=== PATIENT | male | born 1945 | race Caucasian/White ===

== ENCOUNTER 2017-04-15 16:24 | Emergency (ER) | payer MEDICARE ==
[~2017-04-15] VITALS: Ht 175.3 cm; Wt 68.0 kg
[~2017-04-15 16:24] MED LIST: CHOL10005 PO; CLOB15OI16; DEX4 PO; FLU60SYR30 IM ONLY; FLUO60SO10; FOLI-68 PO; GABA-549; GARL10005 PO; GLUC-308 PO; LEVE500T73 PO; LORA-1455 PO; METH2.5T43 PO; ONDA8TAB94 PO; PANT40TA65 PO; PNEI IJ; PNEU0.5D3 IM; SULF-198 PO; TRIA15OI TP; ZINC50TA2 PO
--- NOTE | 2017-04-15 16:50 | ER Report ---
History and Physical Time Seen By MD: 16:49 Hx. of Stated Complaint: DIARRHEA FOR 2 DAYS. FINISHED CHEMO ON FRIDAY, HAS CA OF MULTIPLE SITES, BRAIN , LIVER, LUNG, LYMPH NODES (COLEMAN BARAKAT MD) HPI/ROS CHIEF COMPLAINT: diarrhea HISTORY OF PRESENT ILLNESS: This is a 71 year old male. He has had several days of diarrhea. Just finished his first 3 day course of chemotherapy recently. Chemotherapy was with carboplatin on days one through 3 on a 21 day cycle. Also on a Decadron taper and received Neulasta the day after the carboplatin. Cancer is an unknown primary with poorly differentiated metastatic disease Denies abdominal pain. No nausea. Stable appetite. No fevers, but had had chills. No chest pain. No shortness of breath. Has felt very weak. Gets dizzy when sitting or standing. Normal urination. No skin rashes. REVIEW OF SYSTEMS: As above, otherwise negative (COLEMAN BARAKAT MD) Allergies: Coded Allergies: No Known Drug Allergies (Unverified , 04/15/17) Home Meds Active Scripts Oxycodone Hcl/Acetaminophen (PERCOCET 5-325 MG TABLET) 1 Each Tablet, 1 EACH PO Q4-6H Y for PAIN, #12 Prov:DONNA PALACIOS DO 04/15/17 Diphenoxylate Hcl/Atropine (LOMOTIL TABLET) 1 Each Tablet, 1 EACH PO Q6H Y for diarrhea, #30 TAB Prov:DONNA PALACIOS DO 04/15/17 Pantoprazole Sodium (PANTOPRAZOLE SODIUM) 40 Mg Tablet.dr, 40 MG PO QDAY for 90 Days, #90 TAB.SR 1 Refill Prov:SERINA GIBSON-BC, ONC 04/09/17 Lorazepam (ATIVAN) 0.5 Mg Tablet, 0.5 MG PO Q4-6H Y for NAUSEA for 30 Days, #30 TAB 0 Refills Prov:SERINA GIBSON-BC, ONC 04/09/17 Ondansetron (ZOFRAN ODT) 8 Mg Tab.rapdis, 8 MG PO Q8H, #30 TAB 1 Refill Prov:SERINA GIBSON-BC, ONC 04/09/17 Triamcinolone Acetonide 0.5% (TRIAMCINOLONE ACETONIDE 0.5%) 15 Gm Oint...g., 60 GM TP QDAY, #60 GM 1 Refill Prov:BHARATH KENYON MD 09/15/15 Reported Medications Dexamethasone 4 Mg Tab (DEXAMETHASONE 4 MG TAB) 4 Mg Tab, 1 MG PO BID for 3 Days , TAB 03/28/17 Levetiracetam (LEVETIRACETAM) 500 Mg Tablet, 500 MG PO BID 03/28/17 Folic Acid (FOLIC ACID) 1 Mg Tablet, 1 MG PO QDAY, TAB 03/28/17 Garlic (GARLIC) 1,000 Mg Capsule, 1000 MG PO DAILY, CAPSULE 03/28/17 Clobetasol Propionate (CLOBETASOL PROPIONATE) 15 Gm Oint...g. 02/27/17 Cholecalciferol (Vitamin D3) (VITAMIN D3) 1,000 Unit Tablet, 1 TAB PO QDAY, TAB 09/15/15 Zinc Amino Acid Chelate (ZINC) 50 Mg Tablet, 1 TAB PO QDAY 09/15/15 Glucosamine/Chondro Hughes A (COSAMIN DS TABLET) 1 Each Tablet, 1 EACH PO QDAY 09/15/15 Discontinued Reported Medications Sulfamethoxazole/Trimet 800-160 Mg Tab (BACTRIM DS TABLET) 1 Each Tablet, 1 TAB PO DAILY, TAB 03/28/17 Methotrexate Sodium (METHOTREXATE) 2.5 Mg Tablet, 15 MG PO QWEEK 02/27/17 Fluocinonide (FLUOCINONIDE) 60 Ml Solution 02/27/17 Past Medical/Surgical History ONCOLOGY HISTORY The patient is a 71-year-old male who presented to the emergency department at [facility] on February 27, 2017 complaining of dizziness, nausea and vomiting. Noncontrast CT scan of the brain done at [facility] on February 27, 2017 showed no evidence of hemorrhage, mass or other acute process. He then had a limited MRI of the brain on February 27, 2017 showing 2.4 cm lesion within the left thalamus. MRI study could not be completed due to significant artifact from likely a metallic foreign body within the orbit soft tissues adjacent to the left globe. Contrast CT scan of the head was done showing 2 cm enhancing lesion of the left thalamus. The patient had PET/CT scan done in [place] on February 26, 2017 which showed widespread metastatic disease including several small pulmonary nodules in the right upper lobe, extensive hepatic metastasis, pelvic bone metastasis, and cervical and left inguinal paul metastasis. There was a mass in the right parotid gland likely metastatic intraparotid lymph node rather than a primary parotid tumor. The patient had multiple biopsies. 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 On February 12, 2017, he had a left neck mass fine needle aspiration which came back positive for poorly differentiated carcinoma. 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 Markers for the lung, breast, kidney, gynecologic tumors, bladder tumors and squamous cell carcinoma all came back negative. The patient completed radiation therapy to the brain on March 20, 2017. PAST MEDICAL HISTORY Significant for psoriasis. PAST SURGICAL HISTORY He had appendectomy. (DONNA PALACIOS DO) Reviewed Nurses Notes: Yes (COLEMAN BARAKAT MD) Hx Smoking: Yes Smoking Status: Current: Every Day Smoker, Heavy Tobacco Smoker Exposure to Second Hand Smoke?: Yes Hx Substance Use Disorder: No Hx Alcohol Use: No (COLEMAN BARAKAT MD) Constitutional Vital Sign - Last 24 Hours 04/15/17 04/15/17 04/15/17 04/15/17 16:36 17:15 17:18 17:22 Temp 98.1 Pulse 82 83 82 90 Resp 22 B/P (MAP) 149/90 121/77 (92) 125/70 (88) 139/82 (101) Pulse Ox 90 O2 Delivery Room Air 04/15/17 04/15/17 04/15/17 04/15/17 17:28 18:45 19:00 19:15 Pulse 77 77 74 B/P (MAP) 135/92 (106) Pulse Ox 94 95 95 O2 Flow Rate 2.0 04/15/17 04/15/17 04/15/17 04/15/17 19:30 19:45 19:50 20:00 Pulse 71 70 71 B/P (MAP) 124/73 (90) 136/113 (121) Pulse Ox 94 94 95 04/15/17 20:05 Pulse 79 Pulse Ox 93 (DONNA PALACIOS DO) Physical Exam General Appearance: The patient is alert. No acute distress. Eyes: Pupils are equal, round. Reactive to light. No pallor, injection or icterus. Extraocular movements are intact. ENT: Mucous membranes are moist. Normal oral mucosa. Posterior oropharynx is normal. Neck: Supple and non tender. Respiratory: Breathing easily and unlabored. Lungs show some mild rhonchi throughout. Cardiovascular: Regular rate and rhythm. No murmurs, gallops or rubs. Normal capillary refill. Trace bilateral pedal edema. Gastrointestinal: Abdomen is soft and non tender. Mildly distended. No masses or organomegaly. Hyperactive bowel sounds. Neurological: Alert and oriented x3. No focal neurologic deficits, generalized weakness. Skin: Warm and dry. Musculoskeletal: Extremities are nontender. DIFFERENTIAL DIAGNOSIS: After history and physical exam, differential diagnosis was considered for new onset diarrhea, with some dizziness. Concern for immune depression and infectious such as C. diff, or if simple gastroenteritis, or chemotherapy side effect. ([facility]) Medical Decision Making Data Points Result Diagram: 04/15/17 1648 04/15/17 1648 Laboratory Hematology Test 04/15/17 16:48 04/15/17 18:27 Red Blood Count 4.61 M/uL (4.00-5.60) Mean Corpuscular Volume 91.1 fL (80.0-96.0) Mean Corpuscular Hemoglobin 30.2 pg (26.0-33.0) Mean Corpuscular Hemoglobin Concent 33.2 g/dL (32.0-36.0) Red Cell Distribution Width 14.3 % (11.5-14.5) Mean Platelet Volume 8.3 fL (7.2-11.1) Neutrophils (%) (Auto) 95.9 % (39.4-72.5) Lymphocytes (%) (Auto) 3.1 % (17.6-49.6) Monocytes (%) (Auto) 0.7 % (4.1-12.4) Eosinophils (%) (Auto) 0.1 % (0.4-6.7) Basophils (%) (Auto) 0.2 % (0.3-1.4) Nucleated RBC Relative Count (auto) 0.0 /100WBC Neutrophils # (Auto) 25.6 K/uL (2.0-7.4) Lymphocytes # (Auto) 0.8 K/uL (1.3-3.6) Monocytes # (Auto) 0.2 K/uL (0.3-1.0) Eosinophils # (Auto) 0.0 K/uL (0.0-0.5) Basophils # (Auto) 0.1 K/uL (0.0-0.1) Nucleated RBC Absolute Count (auto) 0.00 K/uL Peripheral Blood Smear Yes Y/N Prothrombin Time 13.3 seconds (12.0-14.4) Prothromb Time International Ratio 1.01 Activated Partial Thromboplast Time 25 seconds (23-35) Sodium Level 136 mmol/L (137-145) Potassium Level 4.0 mmol/L (3.5-5.0) Chloride Level 105 mmol/L (98-107) Carbon Dioxide Level 22 mmol/L (22-30) Blood Urea Nitrogen 33 mg/dl (9-21) Creatinine 0.80 mg/dl (0.66-1.25) Glomerular Filtration Rate Calc > 60.0 Random Glucose 105 mg/dl (75-110) Calcium Level 8.8 mg/dl (8.4-10.2) Total Bilirubin 0.4 mg/dl (0.2-1.3) Aspartate Amino Transf (AST/SGOT) 32 U/L (0-35) Alanine Aminotransferase (ALT/SGPT) 47 U/L (0-56) Alkaline Phosphatase 169 U/L (0-126) C-Reactive Protein 0.9 mg/dl (<1.0) Total Protein 5.7 gm/dl (6.3-8.2) Albumin 3.2 g/dl (3.5-5.0) Amylase Level 117 U/L (0-110) Lipase 124 U/L (23-300) Urine Color Yellow Urine Clarity Clear Urine pH 5.0 pH (4.8-9.5) Urine Specific [place] 1.017 Urine Protein 30 mg/dL (NEGATIVE) Urine Glucose (UA) Negative mg/dL (NEGATIVE) Urine Ketones Negative mg/dL (NEGATIVE) Urine Blood Moderate (NEGATIVE) Urine Nitrite Negative (NEGATIVE) Urine Bilirubin Negative (NEGATIVE) Urine Urobilinogen Negative mg/dL (0.2-1.9) Urine Leukocyte Esterase Negative (NEGATIVE) Urine RBC 1 /HPF (0-2/HPF) Urine WBC <1 /HPF (0-5/HPF) Urine Squamous Epithelial Cells None /LPF (</=FEW) Urine Bacteria Negative /HPF (NONE-FEW) Urine Mucus None /HPF (NONE-FEW) Chemistry Test 04/15/17 16:48 04/15/17 18:27 White Blood Count 26.7 k/uL (4.5-11.0) Red Blood Count 4.61 M/uL (4.00-5.60) Hemoglobin 13.9 g/dL (14.0-18.0) Hematocrit 42.0 % (42.0-52.0) Mean Corpuscular Volume 91.1 fL (80.0-96.0) Mean Corpuscular Hemoglobin 30.2 pg (26.0-33.0) Mean Corpuscular Hemoglobin Concent 33.2 g/dL (32.0-36.0) Red Cell Distribution Width 14.3 % (11.5-14.5) Platelet Count 150 K/uL (150-450) Mean Platelet Volume 8.3 fL (7.2-11.1) Neutrophils (%) (Auto) 95.9 % (39.4-72.5) Lymphocytes (%) (Auto) 3.1 % (17.6-49.6) Monocytes (%) (Auto) 0.7 % (4.1-12.4) Eosinophils (%) (Auto) 0.1 % (0.4-6.7) Basophils (%) (Auto) 0.2 % (0.3-1.4) Nucleated RBC Relative Count (auto) 0.0 /100WBC Neutrophils # (Auto) 25.6 K/uL (2.0-7.4) Lymphocytes # (Auto) 0.8 K/uL (1.3-3.6) Monocytes # (Auto) 0.2 K/uL (0.3-1.0) Eosinophils # (Auto) 0.0 K/uL (0.0-0.5) Basophils # (Auto) 0.1 K/uL (0.0-0.1) Nucleated RBC Absolute Count (auto) 0.00 K/uL Peripheral Blood Smear Yes Y/N Prothrombin Time 13.3 seconds (12.0-14.4) Prothromb Time International Ratio 1.01 Activated Partial Thromboplast Time 25 seconds (23-35) Glomerular Filtration Rate Calc > 60.0 Calcium Level 8.8 mg/dl (8.4-10.2) Total Bilirubin 0.4 mg/dl (0.2-1.3) Aspartate Amino Transf (AST/SGOT) 32 U/L (0-35) Alanine Aminotransferase (ALT/SGPT) 47 U/L (0-56) Alkaline Phosphatase 169 U/L (0-126) C-Reactive Protein 0.9 mg/dl (<1.0) Total Protein 5.7 gm/dl (6.3-8.2) Albumin 3.2 g/dl (3.5-5.0) Amylase Level 117 U/L (0-110) Lipase 124 U/L (23-300) Urine Color Yellow Urine Clarity Clear Urine pH 5.0 pH (4.8-9.5) Urine Specific [place] 1.017 Urine Protein 30 mg/dL (NEGATIVE) Urine Glucose (UA) Negative mg/dL (NEGATIVE) Urine Ketones Negative mg/dL (NEGATIVE) Urine Blood Moderate (NEGATIVE) Urine Nitrite Negative (NEGATIVE) Urine Bilirubin Negative (NEGATIVE) Urine Urobilinogen Negative mg/dL (0.2-1.9) Urine Leukocyte Esterase Negative (NEGATIVE) Urine RBC 1 /HPF (0-2/HPF) Urine WBC <1 /HPF (0-5/HPF) Urine Squamous Epithelial Cells None /LPF (</=FEW) Urine Bacteria Negative /HPF (NONE-FEW) Urine Mucus None /HPF (NONE-FEW) Coagulation Test 04/15/17 16:48 Prothrombin Time 13.3 seconds Prothromb Time International Ratio 1.01 Activated Partial Thromboplast Time 25 seconds Urinalysis Test 04/15/17 18:27 Urine Color Yellow Urine Clarity Clear Urine pH 5.0 pH (4.8-9.5) Urine Specific [place] 1.017 Urine Protein 30 mg/dL (NEGATIVE) Urine Glucose (UA) Negative mg/dL (NEGATIVE) Urine Ketones Negative mg/dL (NEGATIVE) Urine Blood Moderate (NEGATIVE) Urine Nitrite Negative (NEGATIVE) Urine Bilirubin Negative (NEGATIVE) Urine Urobilinogen Negative mg/dL (0.2-1.9) Urine Leukocyte Esterase Negative (NEGATIVE) Urine RBC 1 /HPF (0-2/HPF) Urine WBC <1 /HPF (0-5/HPF) Urine Squamous Epithelial Cells None /LPF (</=FEW) Urine Bacteria Negative /HPF (NONE-FEW) Urine Mucus None /HPF (NONE-FEW) (DONNA PALACIOS DO) ED Course/Re-evaluation Clinical Indication for ER IV: Hydration, IV Access ED Course Patient was admitted to an examination room. H&P was done. The differential diagnoses was considered. On clinical examination. Patient has benign nonsurgical abdomen. His three-way of the abdomen is unremarkable. Diagnostic laboratory studies are unremarkable as well. Patient's expansion diarrhea, likely secondary to chemotherapy. He's had no fever, no blood. His white blood cell count is grossly elevated likely secondary to the Neulasta. Patient CRP is normal at 0.9 He received. Patient was treated with 2 L of crystalloid. He was discharged home with a prescription for Lomotil, Percocet and a prescription for stool studies. Patient advised to follow-up with oncology clinic in the next 2 days and let them know how he is doing. Decision to Disposition Date: Apr 15, 2017 Decision to Disposition Time: 19:11 (DONNA PALACIOS DO) Depart Departure Latest Vital Signs Vital Signs Date Time Temp Pulse Resp B/P (MAP) Pulse Ox O2 Delivery O2 Flow Rate FiO2 04/15/17 20:05 79 93 04/15/17 20:00 136/113 (121) 04/15/17 17:28 2.0 04/15/17 16:36 98.1 22 Room Air (DONNA PALACIOS DO) Impression: Primary Impression: Diarrhea Additional Impressions: Metastatic carcinoma History of recent chemotherapy Dehydration Condition: Improved Disposition: HOME OR SELF-CARE New Scripts Oxycodone Hcl/Acetaminophen (PERCOCET 5-325 MG TABLET) 1 Each Tablet 1 EACH PO Q4-6H Y for PAIN, #12 Prov: DONNA PALACIOS DO 04/15/17 Diphenoxylate Hcl/Atropine (LOMOTIL TABLET) 1 Each Tablet 1 EACH PO Q6H Y for diarrhea, #30 TAB Prov: DONNA PALACIOS DO 04/15/17 Patient Instructions: Acute Diarrhea (ED), Clear Liquid Diet (ED) Additional Instructions: Increase your fluid intake Use Imodium to control the diarrhea Contact ONCOLOGY clinic tomorrow and let them know how you're doing Problem Qualifiers Primary Impression: Diarrhea Diarrhea type: unspecified type Qualified Codes: R19.7 - Diarrhea, unspecified COLEMAN BARAKAT MD Apr 15, 2017 16:49 DONNA PALACIOS DO Apr 15, 2017 19:14
[2017-04-15] MEDS ORDERED: NS(*) 0.9% 1000 ML BAG 1,000 ML IV ONE (17:02)
[2017-04-15 17:23] LABS: PLATELET COUNT, AUTOMATED 150 K/uL (150-450)
[2017-04-15 17:28] LABS: INR 1.01
--- NOTE | 2017-04-15 18:30 | RADIOLOGY IMAGING REPORT ---
FACILITY: [facility] [place] PATIENT NAME: Erwin Daniels : 1945 MR: [id number] V: [id number] EXAM DATE: ORDERING PHYSICIAN: COLEMAN BARAKAT TECHNOLOGIST: [place] [facility] [place] Erwin Daniels : 1945 Visit/Account:[id number] Date of Sevice: 04/15/2017 Abdominal series with single view of the chest: 04/15/2017 5:02 PM HISTORY: Abdominal pain diarrhea. COMPARISON: CT abdomen pelvis on 02/21/2017. CT the chest on 02/20/2017. FINDINGS: There are some stool seen throughout colon. Bowel gas pattern is nonobstructed and nondila daryl. Abdominal soft tissues grossly normal without suspicious lucencies or abnormal calcifications. S urgical clips seen about the left hip. No acute bony abnormality. The spine does show a rightward con vexity of the lumbar spine with degenerative changes. Cardiomediastinal silhouette and pulmonary vessels within normal limits. Right Port-A-Cath in place tip in SVC. Lungs show no focal consolidation, pleural effusion or pneumothorax. No discrete nodule. No acute bony abnormality. IMPRESSION: 1. Unremarkable exam of the abdomen. 2. No acute cardiopulmonary process. Report Dictated By: Zion Hinton at 04/15/2017 6:23 PM Report E-Signed By: Zion Hinton at 04/15/2017 6:26 PM WSN:[id number]
[2017-04-15] MEDS ORDERED: LR(*) 1000 ML BAG 1,000 ML IV PRN (19:10)
[2017-04-15] MEDS ORDERED: DIPH-1 PO (19:14)
[2017-04-15 20:00] VITALS: BP 136/113
[2017-04-15] MEDS ORDERED: oxyCODONE/ACETAMIN 5/325MG TH 2 TAB/BOTTLE PO ONE (20:15)
[2017-04-15] MEDS ORDERED: OXYC-865 PO (20:16)
--- NOTE | 2017-04-16 08:30 | Oncology Note ---
Patient seen in the ED last night for diarrhea. He was hydrated and given lomotil. He is feeling better and does not feel that he needs more fluids today. He will call if he does. He was scheduled for labs today. I reviewed labs from the ED and he is good, no reason to repeat them today. He will follow up as scheduled and will call if concerns. SERINA GIBSON-BC, ONC Apr 16, 2017 08:30
== END 2017-04-15 20:24 | disposition home or self-care (01) ==
LOC: ER 16:30
DX: R19.7 Diarrhea, unspecified (principal); C80.1 Malignant (primary) neoplasm, unspecified; C79.31 Secondary malignant neoplasm of brain; C78.7 Secondary malignant neoplasm of liver and intrahepatic bile duct; C78.00 Secondary malignant neoplasm of unspecified lung; C77.9 Secondary and unspecified malignant neoplasm of lymph node, unspecified; Z92.21 Personal history of antineoplastic chemotherapy; E86.0 Dehydration
CPT/HCPCS: 74022; 81001; 82150; 83690; 85025; 85610; 85730; 86140; 96360; 96361; 99284; J7030; J7120; 82040; 82247; 82310; 82374; 82435; 82565; 82947; 84075; 84132; 84155; 84295; 84450; 84460; 84520

== ENCOUNTER → 2017-04-23 | Outpatient (REF) | payer MEDICARE ==
[~2017-04-23] MED LIST changes: +DIPH-1 PO; +OXYC-865 PO
[2017-04-23 11:54] LABS: PLATELET COUNT, AUTOMATED 125 K/uL (150-450)
== END ==
LOC: ZZPREMIUM 11:42
PROVIDERS: ATTEND Nurse Practitioner Family
DX: C74.10 Malignant neoplasm of medulla of unspecified adrenal gland (principal)
CPT/HCPCS: 82040; 82247; 82310; 82374; 82435; 82565; 82947; 84075; 84132; 84155; 84295; 84450; 84460; 84520; 85025

== ENCOUNTER → 2017-05-14 | Outpatient (CLI) | payer MEDICARE ==
[~2017-05-14] MED LIST changes: +IOPAMIDOL 76% 75 ML INFUS BTL 75 ML ONE; +NS 0.9% 20 ML SDV 20 ML ONE
--- NOTE | 2017-05-14 15:27 | RADIOLOGY IMAGING REPORT ---
FACILITY: [facility] PATIENT NAME: Erwin Daniels : 1945 MR: [id number] V: [id number] EXAM DATE: ORDERING PHYSICIAN: DALILA DIXON TECHNOLOGIST: Location: [facility] [place] Patient: Erwin Daniels : 1945 Visit/Account:[id number] Date of Sevice: 05/14/2017 HEAD W W/O CONTRAST INDICATION: Lung cancer COMPARISON: CT 02/27/2017 TECHNIQUE: Pre and postcontrast head CT performed with sagittal and coronal reformations. One of the following dose optimization techniques was utilized in the performance of this exam: automated exposu re control; adjustment of the mA and/or kV according to patient size; or use of iterative reconstruct ion technique. Specific details can be referenced in the facility's radiology CT exam operational po licy.. 75 mL Isovue 370 injected. FINDINGS: The basal cisterns and convexity sulci are maintained. No intracranial hemorrhage, hydrocephalus or m idline shift. Normal orbital soft tissues. Posttreatment-related left frontal lobe hypoattenuation versus vasogenic edema has increased. Clear mastoid air cells, tiny left maxillary sinus mucous retention cyst and normal osseous structure s. Left medial cerebellar 4.4 mm enhancing nodule has increased in conspicuity. This was likely present on prior but less distinct and is likely unchanged in size. 2 mm right frontal lobe enhancing nodule, axial image 50 is not definitively seen on prior exam. Inferior medial bilateral frontal lobe white matter hypoattenuation is unchanged on the right and has decreased on the left. 2 mm right frontal white matter enhancing nodule, image 32 is not definitivel y seen on prior. Medial inferior left frontal region 1 cm nodule has decreased in size, axial image 31. Left thalamic 3.6 mm nodule has decreased in size, axial image 36. Right frontal region 2 mm enhancing nodule, image 53 has decreased in size. Right frontal lobe 4 mm enhancing nodule, image 50 has decreased in size. Inferior right frontal region 4.5 mm nodule, image 30 has decreased in size. Punctate left temporal nodule has decreased in size, axial image 27. The additional previously seen enhancing nodules have either resolved or have decreased in size and a re not visible by CT. Equivocal new punctate left posterior ellie enhancing nodule, axial image 25. IMPRESSION: 1. Resolution or decrease in size of the multiple previously seen metastatic lesions. 2. 4.4 mm left cerebellar enhancing nodule has increased in conspicuity and was likely present on vandana or exam. This is likely unchanged in size. 3. 2 mm new right frontal lobe enhancing nodule. Equivocal new punctate enhancing lesion in the left posterior ellie. 4. Left frontal lobe parenchymal hypoattenuation has increased and may reflect posttreatment related change or vasogenic edema or a combination of the 2. Report Dictated By: Guido Gimenez MD at 05/14/2017 3:05 PM Report E-Signed By: Guido Gimenez MD at 05/14/2017 3:22 PM WSN:[id number]
== END ==
LOC: CT 01:32
PROVIDERS: ATTEND Radiology Radiation Oncology
DX: C79.31 Secondary malignant neoplasm of brain (principal)
CPT/HCPCS: 70470; J7050; Q9967

== ENCOUNTER 2017-06-24 09:18 | Outpatient (RCR) | payer MEDICARE ==
[2017-03-28 13:34] VITALS: BP 132/73
--- NOTE | 2017-04-01 15:56 | ONCOLOGY CONSULTATION ---
EVENT DATE: 03/28/2017 REASON FOR CONSULTATION Evaluation and management of metastatic poorly differentiated carcinoma. ONCOLOGY HISTORY The patient is a 71-year-old male who presented to the emergency department at [facility] on February 27, 2017 complaining of dizziness, nausea and vomiting. Noncontrast CT scan of the brain done at [facility] on February 27, 2017 showed no evidence of hemorrhage, mass or other acute process. He then had a limited MRI of the brain on February 27, 2017 showing 2.4 cm lesion within the left thalamus. MRI study could not be completed due to significant artifact from likely a metallic foreign body within the orbit soft tissues adjacent to the left globe. Contrast CT scan of the head was done showing 2 cm enhancing lesion of the left thalamus. The patient had PET/CT scan done in [place] on February 26, 2017 which showed widespread metastatic disease including several small pulmonary nodules in the right upper lobe, extensive hepatic metastasis, pelvic bone metastasis, and cervical and left inguinal paul metastasis. There was a mass in the right parotid gland likely metastatic intraparotid lymph node rather than a primary parotid tumor. The patient had multiple biopsies. 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 On February 12, 2017, he had a left neck mass fine needle aspiration which came back positive for poorly differentiated carcinoma. 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 Markers for the lung, breast, kidney, gynecologic tumors, bladder tumors and squamous cell carcinoma all came back negative. The patient completed radiation therapy to the brain on March 20, 2017. PAST MEDICAL HISTORY Significant for psoriasis. PAST SURGICAL HISTORY He had appendectomy. SOCIAL HISTORY The patient is with 4 children. 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 He is a smoker. He has about 60 pack years of tobacco abuse. He is currently smoking less than 1 pack a day. He occasionally has a glass of wine on Sundays. He denies any abuse of illicit drugs. FAMILY HISTORY He had brain cancer in 2 sisters. CURRENT MEDICATIONS 1. Sulfamethoxazole/trimethoprim 800/160 mg. 2. Bactrim 1 tablet orally daily. 3. Dexamethasone 3 mg daily. 4. Levetiracetam 500 mg twice daily. 5. Protonix 40 mg daily. 6. Folic acid 1 mg daily. 7. Garlic 1000 mg capsule daily. 8. Methotrexate 2.5 mg, 15 mg every week. 9. Fluocinonide 60 mg solution. 10. Clobetasol protonate 15 g ointment for psoriasis. 11. Triamcinolone Acetonide 0.5% topical daily. 12. Vitamin D3, 1000 units daily. 13. Zinc amino acid 50 mg daily. 14. Glucosamine 1 tablet daily. ALLERGIES No known drug allergies. REVIEW OF SYSTEMS CONSTITUTIONAL: No appetite or weight change. No fever, chills or sweating. No recent infection. HEENT: Ears: No tinnitus or hearing problem. Nose: He has some nasal discharge. Throat: No sore throat or mouth ulcers. Eyes: He has diplopia, which is getting better after his radiation therapy of the brain tumor. RESPIRATORY: Has cough with exertional shortness of breath. CARDIOVASCULAR: No chest pain, orthopnea, or paroxysmal nocturnal dyspnea (PND) . No edema. No palpitations. GASTROINTESTINAL: No nausea or vomiting. Intermittent diarrhea. No change in bowel movements. No heartburn or swallowing difficulties. No abdominal pain. No jaundice. No hematemesis, melena or rectal bleeding. GENITOURINARY: No hematuria or dysuria. MUSCULOSKELETAL: No pain in the muscles, joints or bones. NEUROLOGICAL: No tingling or numbness in the hands or feet. No headaches or convulsions. HEMATOLOGIC/LYMPHATIC: He is weak, tired, and fatigued. SKIN: He has psoriasis of the skin, on topical treatment. PSYCHIATRIC: No anxiety or depression. PHYSICAL EXAM GENERAL: Looks stable. Well-developed, well-nourished, and in no acute distress. VITAL SIGNS: Blood pressure 152/73, pulse 81 per minute, respirations 16 per minute, temperature 98.1, pulse oximetry 94% on room air. HEENT: Head: Atraumatic. No sinus tenderness to palpation. Eyes: No icterus or conjunctivitis. Mouth and throat: No oral thrush or mucositis. NECK: There is left neck lymphadenopathy palpable. There is also right parotid mass palpable about 2 cm in diameter. LUNGS: Clear to auscultation and percussion bilaterally. HEART: Regular rate and rhythm. No gallops, murmurs, clicks or rubs. ABDOMEN: Soft and lax. No tenderness. No hepatosplenomegaly. No masses. EXTREMITIES: No cyanosis, clubbing or edema. LYMPHATICS: No peripheral lymphadenopathy. NEUROLOGICAL: Conscious, alert and oriented times three. No focal motor or sensory deficits. PSYCHIATRIC: Mood and affect appear normal. SKIN: No skin rash, bruise or purpuric eruption. ASSESSMENT 1. Metastatic disease of unknown primary status post left inguinal lymph node biopsy done on March 06, 2017 which came back positive for poorly differentiated carcinoma positive for cytokeratin 7 and markers for lung, breast , kidney, gynecologic tumors, bladder and squamous cell carcinoma all came back negative. He had also a fine needle biopsy of the left neck mass on February which came back positive for poorly differentiated carcinoma. PET scan showed widespread metastatic disease. Given that his tumor is poorly differentiated, the NCCN guidelines recommend treatment similar to small cell lung cancer and because of his performance status, I prefer to treat him with carboplatin and etoposide. The patient will start treatment on April 08, 2017 and he will receive Neulasta 6 mg subcutaneously on day 4 each cycle. I am planning to ask the pathologist to run molecular markers and to check for PD-L1 ALK mutation, KRAS and BRAS mutations, EGFR mutation and ROS1 mutation to see if there is any target we can use for his treatment in the future if needed. I am planning also to check some of tumor markers to help follow up his treatment like CEA, CA19-9, PSA, chromogranin A. I am planning to see him 3 weeks after he will start his chemotherapy with CBC and a chem panel. 2. Brain metastasis status post radiation therapy completed on March 20, 2017. 3. Bone metastasis: Consider radiation therapy of the bone if the patient will develop pain in that area and consider also Xgeva treatment in the future after dental treatment. 4. Hepatic metastasis and lung metastasis: I am hoping patient with treatment will have some improvement there. PLAN 1. Pathology from the molecular biomarkers. 2. Check CBC, CMP, CEA, PSA, CA19-9 and chromogranin A. 3. The patient to start treatment with carboplatin and etoposide on April 08, 2017. 4. Neulasta 6 mg subcutaneously to be given 24 hours after the end of the cycle which will be day 4. 5. CBC and chem panel to be checked weekly after chemotherapy. 6. The patient to return 3 weeks after starting chemotherapy with CBC and chem panel. 7. The patient is to contact us for any new concern or complaint. 8. Continue dexamethasone taper. He is currently on 3 mg for 10 days and 2 mg for another 10 days then 1 mg for another 10 days and 0.5 mg for another 10 days. 9. Patient to contact us for any concerns or complaints. MTDD
[2017-04-09 10:16] VITALS: BP 118/66
[2017-04-09 11:37] LABS: PLATELET COUNT, AUTOMATED 200 K/uL (150-450)
[2017-04-09] MEDS: PALONOSETRON 0.25 MG/5 ML VIAL IVP PRN (12:11)
[2017-04-09] MEDS: DEXAMETHASONE SOD PHOS 10MG/ML IVP PRN (12:11)
[2017-04-09] MEDS: LIDOCAINE/SOD BICARB 8.4% SYR ID PRN (12:11)
[2017-04-09] MEDS: NS(*) 0.9% 500 ML BAG 500 ML IV PRN (12:12)
[2017-04-09] MEDS: FOSAPREPITANT DIM 150 MG/5 ML 150 MG in NS(*) 0.9% 250 ML BAG 245 ML IVPB PRN (12:36)
--- NOTE | 2017-04-09 13:03 | ONC Progress Note - NP.Halsey ---
Patient History Date of Service Apr 09, 2017 Reason For Visit/HPI Patient is a 71 year old male seen in the clinic today with his family for education prior to starting chemotherapy for management of his metastatic poorly differentiated carcinoma. Patient will start treatment with carboplatin any topical side given days 1 through 3 on a 21 day cycle. Patient is currently on a Decadron taper status post radiation to his brain metastasis. He is receiving home health services for physical therapy for strengthening weakness and dizziness. He reports that he is eating well. Problem List (1) Cancer with unknown primary site (2) Metastasis to brain Oncology History The patient is a 71-year-old male who presented to the emergency department at [facility] on February 27, 2017 complaining of dizziness, nausea and vomiting. Noncontrast CT scan of the brain done at [facility] on February 27, 2017 showed no evidence of hemorrhage, mass or other acute process. He then had a limited MRI of the brain on February 27, 2017 showing 2.4 cm lesion within the left thalamus. MRI study could not be completed due to significant artifact from likely a metallic foreign body within the orbit soft tissues adjacent to the left globe. Contrast CT scan of the head was done showing 2 cm enhancing lesion of the left thalamus. The patient had PET/CT scan done in [place] on February 26, 2017 which showed widespread metastatic disease including several small pulmonary nodules in the right upper lobe, extensive hepatic metastasis, pelvic bone metastasis, and cervical and left inguinal paul metastasis. There was a mass in the right parotid gland likely metastatic intraparotid lymph node rather than a primary parotid tumor. The patient had multiple biopsies. 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 On February 12, 2017, he had a left neck mass fine needle aspiration which came back positive for poorly differentiated carcinoma. 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 Markers for the lung, breast, kidney, gynecologic tumors, bladder tumors and squamous cell carcinoma all came back negative. The patient completed radiation therapy to the brain on March 20, 2017 completed in [place]. PET scan showed widespread metastatic disease. Given that his tumor is poorly differentiated, the NCCN guidelines recommend treatment similar to small cell lung cancer and because of his performance status he will be treated with carboplatin and etoposide days 1-3 every 21 days starting on 04-09-17 followed by Neulasta on day 4. Medical History Family History: FH: brain tumor BROTHER OR SISTER BROTHER OR SISTER FH: stroke MOTHER, , Age:89 Psychosocial History Smoking Status: Current: Every Day Smoker Medications and Allergies Active Scripts Lorazepam (ATIVAN) 0.5 Mg Tablet, 0.5 MG PO Q4-6H Y for NAUSEA for 30 Days, #30 TAB 0 Refills Prov:[facility], ONC 04/09/17 Ondansetron (ZOFRAN ODT) 8 Mg Tab.rapdis, 8 MG PO Q8H, #30 TAB 1 Refill Prov:[facility], ONC 04/09/17 Pantoprazole Sodium (PANTOPRAZOLE SODIUM) 40 Mg Tablet.dr, 40 MG PO QDAY for 90 Days, #90 TAB.SR 1 Refill Prov:[facility]-, ONC 04/04/17 Triamcinolone Acetonide 0.5% (TRIAMCINOLONE ACETONIDE 0.5%) 15 Gm Oint...g., 60 GM TP QDAY, #60 GM 1 Refill Prov:BHARATH KENYON MD 09/15/15 Reported Medications Sulfamethoxazole/Trimet 800-160 Mg Tab (BACTRIM DS TABLET) 1 Each Tablet, 1 TAB PO DAILY, TAB 03/28/17 Dexamethasone 4 Mg Tab (DEXAMETHASONE 4 MG TAB) 4 Mg Tab, 4 MG PO BID for 3 Days , TAB 03/28/17 Levetiracetam (LEVETIRACETAM) 500 Mg Tablet, 500 MG PO BID 03/28/17 Folic Acid (FOLIC ACID) 1 Mg Tablet, 1 MG PO QDAY, TAB 03/28/17 Garlic (GARLIC) 1,000 Mg Capsule, 1000 MG PO DAILY, CAPSULE 03/28/17 Methotrexate Sodium (METHOTREXATE) 2.5 Mg Tablet, 15 MG PO QWEEK 02/27/17 Fluocinonide (FLUOCINONIDE) 60 Ml Solution 02/27/17 Clobetasol Propionate (CLOBETASOL PROPIONATE) 15 Gm Oint...g. 02/27/17 Cholecalciferol (Vitamin D3) (VITAMIN D3) 1,000 Unit Tablet, 1 TAB PO QDAY, TAB 09/15/15 Zinc Amino Acid Chelate (ZINC) 50 Mg Tablet, 1 TAB PO QDAY 09/15/15 Glucosamine/Chondro Hughes A (COSAMIN DS TABLET) 1 Each Tablet, 1 EACH PO QDAY 09/15/15 Allergies: Coded Allergies: No Known Drug Allergies (Unverified , 01/27/17) Review of System/Physical Exam Review of Systems Constitutional: Denies Appetite/Weight Change, Denies Fever/Chills/Sweating, Denies Recent Infection Hematologic: Positive for Fatigue, Positive for Weakness Neurologic: Convulsions (on Keppra), Other (dizziness) Psychiatric: Other (family support is good ), No Anxiety Physical Exam Vital Signs Temperature: 97.3 Pulse: 87 BP Systolic: 118 BP Diastolic: 66 Respiratory Rate: 16 O2 SAT: 94 O2 Delivery: Height (inches) 64.25 Weight lb: 200 Weight oz: Weight Kg (Sarkis): Pain: 0 ECOG Score: 2 General: Stable, Well Developed, Well Nourished, Not In Acute Distress, Other ( alert and oriented) Psychiatric: Mood appears normal, Affect appears normal Chemo Education Chemotherapy Education: Patient is seen today for education regarding chemotherapy with carboplatin in etoposide for his metastatic disease of unknown primary will be given to the patient. The intent for treatment is palliative. Consent for treatment was completed prior to receiving treatment. Mechanism of action and associated side effects of chemotherapy and premedications were discussed. The patient is at increased risk for infection related to bone marrow suppression with chemotherapy. Signs and symptoms of infection were reviewed with recommendation of calling the clinic if fever, chills or a temperature of 100.5 or greater is experienced. Regular monitoring of blood work will be completed. The patient is at increased risk of nausea and vomiting related to chemotherapy. Home antiemetics were reviewed with a schedule of when to take them. Script (s) for zofran and ativan were sent to [facility]. Use and side effects were reviewed. Increased bowel movements or diarrhea may occur. The use of Imodium was reviewed and encouraged to have on hand. Dehydration from decreased intake, nausea or diarrhea could also occur. Side effects of dehydration were reviewed and hydration will be given as needed. Self-care strategies to minimize any symptoms from treatment were taught and written material was given for further review at home. The strategies included: dietary modifications for nausea, diarrhea, fatigue and/ or mouth sores, exercise and resting for fatigue, hydration for dehydration, and skin care for dry skin reactions. In addition, safety measures for IV chemotherapy to prevent teratogenic side effects to others was reviewed in detail to include good hand washing, double flushing, and what to do during sexual intercourse. The above information will be reviewed with the patient and family members as needed. Diagnostic Studies Diagnostic Studies Laboratory Laboratory Tests 04/09/17 11:30 Laboratory Tests 04/09/17 11:30: White Blood Count 9.5, Red Blood Count 5.05, Hemoglobin 15.4, Hematocrit 45.5, Mean Corpuscular Volume 90.0, Mean Corpuscular Hemoglobin 30.5, Mean Corpuscular Hemoglobin Concent 33.9, Red Cell Distribution Width 14.5, Platelet Count 200, Mean Platelet Volume 7.2, Neutrophils (%) (Auto) 92.2, Lymphocytes (% ) (Auto) 4.0, Monocytes (%) (Auto) 3.5, Eosinophils (%) (Auto) 0.1, Basophils (% ) (Auto) 0.2, Nucleated RBC Relative Count (auto) 0.0, Neutrophils # (Auto) 8.8 , Lymphocytes # (Auto) 0.4, Monocytes # (Auto) 0.3, Eosinophils # (Auto) 0.0, Basophils # (Auto) 0.0, Nucleated RBC Absolute Count (auto) 0.00, Sodium Level 137, Potassium Level 4.1, Chloride Level 105, Carbon Dioxide Level 24, Blood Urea Nitrogen 22, Creatinine 0.90, Glomerular Filtration Rate Calc > 60.0, Random Glucose 152, Calcium Level 8.7, Total Bilirubin 0.6, Aspartate Amino Transf (AST/SGOT) 34, Alanine Aminotransferase (ALT/SGPT) 66, Alkaline Phosphatase 148, Total Protein 6.1, Albumin 3.3 Assessment and Plan Assessment & Plan Metastatic disease of unknown primary status post left inguinal lymph node biopsy done on March 06, 2017 which came back positive for poorly differentiated carcinoma positive for cytokeratin 7 and markers for lung, breast , kidney, gynecologic tumors, bladder and squamous cell carcinoma all came back negative. He had also a fine needle biopsy of the left neck mass on February which came back positive for poorly differentiated carcinoma. PET scan showed widespread metastatic disease. Given that his tumor is poorly differentiated, the NCCN guidelines recommend treatment similar to small cell lung cancer and because of his performance status, I prefer to treat him with carboplatin and etoposide. The patient will start treatment on April 08, 2017 and he will receive Neulasta 6 mg subcutaneously on day 4 each cycle. I am planning to ask the pathologist to run molecular markers and to check for PD-L1 ALK mutation, KRAS and BRAS mutations, EGFR mutation and ROS1 mutation to see if there is any target we can use for his treatment in the future if needed. Patient will start treatment today. He will have weekly CBC and a chem panel. Education regarding chemotherapy with consent completed today. 2. Brain metastasis status post radiation therapy completed on March 20, 2017. 3. Bone metastasis: Consider radiation therapy of the bone if the patient will develop pain in that area and consider also Xgeva treatment in the future after dental treatment. 4. Hepatic metastasis and lung metastasis: I am hoping patient with treatment will have some improvement there. PLAN 1. Obtain Pathology from the molecular biomarkers. 2. CBC, CMP, CEA, PSA, CA19-9 and chromogranin A were to be drawn for further evaluation- they were not drawn, but are to be drawn today. 3. Start treatment with carboplatin and etoposide on April 09, 2017. 4. Neulasta 6 mg subcutaneously to be given 24 hours after the end of the cycle which will be day 4. 5. CBC and chem panel to be checked weekly after chemotherapy. 6. The patient to return 3 weeks after starting chemotherapy with CBC and chem panel. 7. The patient is to contact us for any new concern or complaint. 8. Continue dexamethasone taper. He is currently on 2 mg for another 10 days then 1 mg for another 10 days and 0.5 mg for another 10 days. 9. Patient to contact us for any concerns or complaints. I personally spent a total of 40 minutes. Of that 35 minutes was counseling/ coordination of patient's care. See my note above for details. SERINA GIBSON MORPHOLOGIST-BC, ONC Apr 09, 2017 13:03
[2017-04-09 15:57] VITALS: BP 134/80
[2017-04-10] MEDS: LIDOCAINE/SOD BICARB 8.4% SYR ID PRN (13:10)
[2017-04-10] MEDS: NS(*) 0.9% 500 ML BAG 500 ML IV PRN (13:16)
[2017-04-10 13:17] VITALS: BP 131/81
[2017-04-10] MEDS: DEXAMETHASONE SOD PHOS 10MG/ML IVP PRN (13:31)
[2017-04-10] MEDS: HEPARIN FLSH (PORT) 500 UN/5ML IVP PRN (15:13)
[2017-04-10 15:20] VITALS: BP 136/77
[2017-04-11 12:54] VITALS: BP 113/68
[2017-04-11] MEDS: LIDOCAINE/SOD BICARB 8.4% SYR ID PRN (13:08)
[2017-04-11] MEDS: DEXAMETHASONE SOD PHOS 10MG/ML IVP PRN (13:12)
[2017-04-11 14:44] VITALS: BP 149/84
[2017-04-11] MEDS: HEPARIN FLSH (PORT) 500 UN/5ML IVP PRN (14:48)
[2017-04-25 14:05] VITALS: BP 137/76
--- NOTE | 2017-04-25 19:30 | ONCOLOGY FOLLOW UP NOTE ---
EVENT DATE: April 25, 2017 DIAGNOSES 1. Metastatic disease of unknown primary. 2. Brain metastasis. 3. Bone metastasis. 4. Hepatic metastasis. 5. Lung metastasis. CHIEF COMPLAINT Patient is here today for his second cycle of chemotherapy with carboplatin and etoposide for his metastatic disease of unknown primary. ONCOLOGY HISTORY The patient is a 71-year-old male who presented to the emergency department at [facility] on February 27, 2017 complaining of dizziness, nausea and vomiting. Noncontrast CT scan of the brain done at [facility] on February 27, 2017 showed no evidence of hemorrhage, mass or other acute process. He then had a limited MRI of the brain on February 27, 2017 showing 2.4 cm lesion within the left thalamus. MRI study could not be completed due to significant artifact from likely a metallic foreign body within the orbit soft tissues adjacent to the left globe. Contrast CT scan of the head was done showing 2 cm enhancing lesion of the left thalamus. The patient had PET/CT scan done in [place] on February 26, 2017 which showed widespread metastatic disease including several small pulmonary nodules in the right upper lobe, extensive hepatic metastasis, pelvic bone metastasis, and cervical and left inguinal paul metastasis. There was a mass in the right parotid gland likely metastatic intraparotid lymph node rather than a primary parotid tumor. The patient had multiple biopsies. 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 On February 12, 2017, he had a left neck mass fine needle aspiration which came back positive for poorly differentiated carcinoma. 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 Markers for the lung, breast, kidney, gynecologic tumors, bladder tumors and squamous cell carcinoma all came back negative. The patient completed radiation therapy to the brain on March 20, 2017. Patient started chemotherapy with carboplatin and etoposide on April 08, 2017. HISTORY OF PRESENT HISTORY Patient is here today for his second cycle of carboplatin and etoposide for his metastatic carcinoma of unknown primary. The patient tolerated the first cycle reasonably well. He has some swelling especially in his left leg. He had also diarrhea that responded to Imodium. He had some insomnia and he took Percocet and Ativan for it. He has some falls down and some confusion occasionally. He has also headache. He is weak, tired and fatigued. PAST MEDICAL HISTORY Significant for psoriasis. PAST SURGICAL HISTORY He had appendectomy. SOCIAL HISTORY The patient is with 4 children. 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 He is a smoker. He has about 60 pack years of tobacco abuse. He is currently smoking less than 1 pack a day. He occasionally has a glass of wine on Sundays. He denies any abuse of illicit drugs. FAMILY HISTORY He had brain cancer in 2 sisters. CURRENT MEDICATIONS 1. Sulfamethoxazole/trimethoprim 800/160 mg. 2. Bactrim 1 tablet orally daily. 3. Dexamethasone 3 mg daily. 4. Levetiracetam 500 mg twice daily. 5. Protonix 40 mg daily. 6. Folic acid 1 mg daily. 7. Garlic 1000 mg capsule daily. 8. Methotrexate 2.5 mg, 15 mg every week. 9. Fluocinonide 60 mg solution. 10. Clobetasol protonate 15 g ointment for psoriasis. 11. Triamcinolone Acetonide 0.5% topical daily. 12. Vitamin D3, 1000 units daily. 13. Zinc amino acid 50 mg daily. 14. Glucosamine 1 tablet daily. ALLERGIES No known drug allergies. REVIEW OF SYSTEMS CONSTITUTIONAL: No appetite or weight change. No fever, chills or sweating. No recent infection. HEENT: Ears: No tinnitus or hearing problem. Nose: He has some nasal discharge. Throat: No sore throat or mouth ulcers. Eyes: He has diplopia, which is getting better after his radiation therapy of the brain tumor. RESPIRATORY: Has cough with exertional shortness of breath. CARDIOVASCULAR: Patient has swelling, especially of the left leg. GASTROINTESTINAL: Patient has occasional diarrhea responding to Imodium. GENITOURINARY: No hematuria or dysuria. MUSCULOSKELETAL: No pain in the muscles, joints or bones. NEUROLOGICAL: He has falls at home, but he has also hedache. HEMATOLOGIC/LYMPHATIC: He is weak, tired, and fatigued. SKIN: He has psoriasis of the skin, on topical treatment. PSYCHIATRIC: No anxiety or depression. PHYSICAL EXAM GENERAL: Looks stable. Well-developed, well-nourished, and in no acute distress. VITAL SIGNS: Blood pressure 137/76, pulse 79 per minute, respirations 16 per minute, temperature 97.6, pulse oximetry 95% on room air. HEENT: Head: Atraumatic. No sinus tenderness to palpation. Eyes: No icterus or conjunctivitis. Mouth and throat: No oral thrush or mucositis. NECK: There is left neck lymphadenopathy palpable. There is also right parotid mass palpable about 2 cm in diameter. LUNGS: Clear to auscultation and percussion bilaterally. HEART: Regular rate and rhythm. No gallops, murmurs, clicks or rubs. ABDOMEN: Soft and lax. No tenderness. No hepatosplenomegaly. No masses. EXTREMITIES: No cyanosis, clubbing or edema. LYMPHATICS: No peripheral lymphadenopathy. NEUROLOGICAL: Conscious, alert and oriented times three. No focal motor or sensory deficits. PSYCHIATRIC: Mood and affect appear normal. SKIN: No skin rash, bruise or purpuric eruption. DIAGNOSTIC DATA CBC showed white count 14.3, hemoglobin 14.4, hematocrit 42.4, platelets 125, 000. Chem panel totally normal except alkaline phosphatase 188, potassium 3.3. Alpha fetoprotein is normal at 4. CEA is normal at 2.7. PSA is normal at 1.61. CA 19-9 is normal at 11, but chromogranin A is high at 680. Pathological marker from his tumor tissue including PD-L1, KRAS, BRAS, ALK mutation, EGFR mutation, ROS1 mutation all came back negative. His tumor was microsatellite instability low. ASSESSMENT 1. Metastatic disease of unknown primary status post left inguinal lymph node biopsy done on March 06, 2017 which came back positive for poorly differentiated carcinoma positive for cytokeratin 7 and markers for lung, breast , kidney, gynecologic tumors, bladder and squamous cell carcinoma all came back negative. He had also fine needle biopsy of the left neck mass on February 12, 2017 which came back positive for poorly differentiated carcinoma. PET scan showed widespread metastatic disease. Given that his tumor is poorly differentiated, the NCCN guidelines recommend treatment similar to small cell lung cancer and because of his performance status, carboplatin and etoposide was a reasonable option for him. Patient started chemotherapy with carboplatin and etoposide April 08, 2017, and the patient received Neulasta 6 mg subcutaneously on day four. Patient tolerated treatment well. His appetite is a little bit better. He recovered from his bone marrow suppression and I am planning to proceed with this second cycle of carboplatin and etoposide next week. I will see him in three weeks from now with CBC, chem panel and chromogranin A at that time, with CBC and chem panel to be checked weekly after chemotherapy. 2. Brain metastasis status post radiation therapy completed on March 20, 2017. 3. Bone metastasis. Consider Xgeva treatment in the future after the end of treatment. 4. Hepatic metastasis and lung metastasis. Patient will receive chemotherapy and we will monitor his response in the future. PLAN 1. Carboplatin and etoposide. This will be cycle number two. 2. CBC, chem panel to be checked weekly. 3. Neulasta 6 mg subcutaneously to be given on day four of each cycle. 4. Patient to return in 3 weeks with CBC, chem panel and chromogranin A.. 5. Continue dexamethasone taper. 6. Patient to contact us for any concerns or complaints. MTDD
[2017-04-30] MEDS: NS(*) 0.9% 500 ML BAG 500 ML IV PRN (13:24)
[2017-04-30] MEDS: DEXAMETHASONE SOD PHOS 10MG/ML IVP PRN (13:25)
[2017-04-30] MEDS: LIDOCAINE/SOD BICARB 8.4% SYR ID PRN (13:25)
[2017-04-30] MEDS: HEPARIN FLSH (PORT) 500 UN/5ML IVP PRN (13:25)
[2017-04-30] MEDS: PALONOSETRON 0.25 MG/5 ML VIAL IVP PRN (13:25)
[2017-04-30 13:44] VITALS: BP 142/76
[2017-04-30] MEDS: FOSAPREPITANT DIM 150 MG/5 ML 150 MG in NS(*) 0.9% 250 ML BAG 245 ML IVPB PRN (13:50)
[2017-04-30 16:59] VITALS: BP 142/78
[2017-05-01 13:53] VITALS: BP 130/80
[2017-05-01] MEDS: DEXAMETHASONE SOD PHOS 10MG/ML IVP PRN (13:57)
[2017-05-01] MEDS: HEPARIN FLSH (PORT) 500 UN/5ML IVP PRN (15:57)
[2017-05-01] MEDS: NS(*) 0.9% 500 ML BAG 500 ML IV PRN (15:58)
[2017-05-02] MEDS: LIDOCAINE/SOD BICARB 8.4% SYR ID PRN (13:19)
[2017-05-02] MEDS: DEXAMETHASONE SOD PHOS 10MG/ML IVP PRN (13:19)
[2017-05-02] MEDS: NS(*) 0.9% 500 ML BAG 500 ML IV PRN (13:19)
[2017-05-02 15:12] VITALS: BP 140/83
[2017-05-02] MEDS: HEPARIN FLSH (PORT) 500 UN/5ML IVP PRN (15:39)
[2017-05-02 15:40] VITALS: BP 135/86
[2017-05-04 08:58] VITALS: BP 126/70
[2017-05-07 14:48] LABS: PLATELET COUNT, AUTOMATED 303 K/uL (150-450)
[2017-05-07 15:01] VITALS: BP 119/63
--- NOTE | 2017-05-12 08:26 | Oncology Note ---
Patient's called over the weekend to report that he was having diarrhea up to 10 stools a day. He was only taking Lomotil 2 times a day. This was increased to every 4-6 hours. Patient was called today and she reported that yesterday he had no diarrhea but did take 2 tablets yesterday of Lomotil. Unfortunately he woke this morning and has had 2 episodes of diarrhea this morning but has not taken any Lomotil yet today. She was encouraged to give him Lomotil at this time. He is scheduled to come in on Friday for labs but was told that if he is not getting enough fluids and that he should call the clinic and come in today to be hydrated. She verbalized understanding. He is not eating well. She will try some frozen yogurt that she has. She has given him some Jell-O and some orange aid that he is tolerating. SERINA GIBSON BOOTH CASHIER-BC, ONC May 12, 2017 08:26
[2017-05-14 10:38] LABS: PLATELET COUNT, AUTOMATED 105 K/uL (150-450)
--- NOTE | 2017-05-14 11:58 | EKG ---
[facility] PATIENT NAME: LITO APARICIO : [id number] MR: [id number] V: [id number] EXAM DATE: ORDERING PHYSICIAN: SERINA GIBSON TECHNOLOGIST: Test Reason : Blood Pressure : / mmHG Vent. Rate : 058 BPM Atrial Rate : 058 BPM P-R Int : 186 ms QRS Dur : 132 ms QT Int : 488 ms P-R-T Axes : 090 013 007 degrees QTc Int : 479 ms Sinus bradycardia Right bundle branch block Abnormal ECG When compared with ECG of 27-FEB-2017 06:51, premature atrial complexes are no longer present Confirmed by SYLVIA CHRISTENSEN ([id number]) on 05/14/2017 12:34:33 PM Referred By: MARNIE BRISENO Confirmed By:SYLVIA CHRISTENSEN
[2017-05-20 12:29] VITALS: BP 134/88
[2017-05-20] MEDS: LIDOCAINE/SOD BICARB 8.4% SYR ID PRN (12:40)
[2017-05-20] MEDS: NS(*) 0.9% 500 ML BAG 500 ML IV PRN (12:40)
[2017-05-20] MEDS: PALONOSETRON 0.25 MG/5 ML VIAL IVP PRN (13:26)
[2017-05-20] MEDS: DEXAMETHASONE SOD PHOS 10MG/ML IVP PRN (13:26)
[2017-05-20] MEDS: FOSAPREPITANT DIM 150 MG/5 ML 150 MG in NS(*) 0.9% 250 ML BAG 245 ML IVPB PRN (13:50)
--- NOTE | 2017-05-20 15:19 | ONC Progress Note - NP.Halsey ---
Patient History Date of Service May 20, 2017 Reason For Visit/HPI Patient is a 71 year old male seen in the clinic today with his family for Cycle 3 day 1 of chemotherapy with carboplatin and etoposide for his metastatic squamous cell carcinoma with unknown primary. Patient reports that other then significant diarrhea he is tolerating treatment fairly well. He is taking up to 6 Lomotil in a day for bowel management. His potassium has been decreased and he will be started on potassium supplement. Patient followed with radiation oncology in [place] yesterday after having a CT of the brain completed. Patient has increased edema and increased area in the cerebellar otherwise other areas have decreased. Patient was instructed to increase his dexamethasone back to 2 mg a day. He has not noticed if this is helped with his dizziness since that has only been 1 day. Patient reports that he had a sharp shooting pain across the chest and believes it was heartburn. He denied any ongoing pain or numbness in his left arm. Symptoms resolved very quickly. Symptoms started during his premedication infusion. Last treatment patient experienced similar symptoms and in EKG was completed. Although it was abnormal indicating a right bundle branch block, it remains stable when compared to previous EKG. Patient is having some difficulty with sleep and is taking Ativan at night with some relief. He will try melatonin to see if this will increase his sleep habits. Oncology History The patient is a 71-year-old male who presented to the emergency department at [facility] on February 27, 2017 complaining of dizziness, nausea and vomiting. Noncontrast CT scan of the brain done at [facility] on February 27, 2017 showed no evidence of hemorrhage, mass or other acute process. He then had a limited MRI of the brain on February 27, 2017 showing 2.4 cm lesion within the left thalamus. MRI study could not be completed due to significant artifact from likely a metallic foreign body within the orbit soft tissues adjacent to the left globe. Contrast CT scan of the head was done showing 2 cm enhancing lesion of the left thalamus. The patient had PET/CT scan done in [place] on February 26, 2017 which showed widespread metastatic disease including several small pulmonary nodules in the right upper lobe, extensive hepatic metastasis, pelvic bone metastasis, and cervical and left inguinal paul metastasis. There was a mass in the right parotid gland likely metastatic intraparotid lymph node rather than a primary parotid tumor. The patient had multiple biopsies. 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 On February 12, 2017, he had a left neck mass fine needle aspiration which came back positive for poorly differentiated carcinoma. 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 Markers for the lung, breast, kidney, gynecologic tumors, bladder tumors and squamous cell carcinoma all came back negative. The patient completed radiation therapy to the brain on March 20, 2017 completed in [place]. PET scan showed widespread metastatic disease. Given that his tumor is poorly differentiated, the NCCN guidelines recommend treatment similar to small cell lung cancer and because of his performance status he will be treated with carboplatin and etoposide days 1-3 every 21 days starting on 04-09-17 followed by Neulasta on day 4. Baseline chromogranin A was 690 drawn on 04/09/2017. Medical History Family History: FH: brain tumor BROTHER OR SISTER BROTHER OR SISTER FH: stroke MOTHER, , Age:89 Psychosocial History Smoking History: Yes Smoking Status: Current: Every Day Smoker, Heavy Tobacco Smoker Exposure to Second Hand Smoke?: Yes Medications and Allergies Active Scripts Potassium Chloride (KLOR-CON M20) 20 Meq Tab.er.prt, 1 TAB PO QDAY for low potassium for 30 Days, #30 TAB 5 Refills Prov:SERINA GIBSON NURSE AIDE-BC, ONC 05/20/17 Diphenoxylate Hcl/Atropine (LOMOTIL TABLET) 1 Each Tablet, 1 EACH PO Q6H Y for diarrhea, #30 TAB Prov:KRYSTAL ARSHAD DNP, NURSE AIDE-BC 05/16/17 Oxycodone Hcl/Acetaminophen (PERCOCET 5-325 MG TABLET) 1 Each Tablet, 1 EACH PO Q4-6H Y for PAIN, #12 Prov:DONNA PALACIOS DO 04/15/17 Pantoprazole Sodium (PANTOPRAZOLE SODIUM) 40 Mg Tablet.dr, 40 MG PO QDAY for 90 Days, #90 TAB.SR 1 Refill Prov:SERINA GIBSON NURSE AIDE-BC, ONC 04/09/17 Lorazepam (ATIVAN) 0.5 Mg Tablet, 0.5 MG PO Q4-6H Y for NAUSEA for 30 Days, #30 TAB 0 Refills Prov:SERINA GIBSON NURSE AIDE-BC, ONC 04/09/17 Ondansetron (ZOFRAN ODT) 8 Mg Tab.rapdis, 8 MG PO Q8H, #30 TAB 1 Refill Prov:SERINA GIBSON NURSE AIDE-BC, ONC 04/09/17 Triamcinolone Acetonide 0.5% (TRIAMCINOLONE ACETONIDE 0.5%) 15 Gm Oint...g., 60 GM TP QDAY, #60 GM 1 Refill Prov:BHARATH KENYON MD 09/15/15 Reported Medications Dexamethasone 4 Mg Tab (DEXAMETHASONE 4 MG TAB) 4 Mg Tab, 1 MG PO BID for 3 Days , TAB 03/28/17 Levetiracetam (LEVETIRACETAM) 500 Mg Tablet, 500 MG PO BID 03/28/17 Folic Acid (FOLIC ACID) 1 Mg Tablet, 1 MG PO QDAY, TAB 03/28/17 Garlic (GARLIC) 1,000 Mg Capsule, 1000 MG PO DAILY, CAPSULE 03/28/17 Clobetasol Propionate (CLOBETASOL PROPIONATE) 15 Gm Oint...g. 02/27/17 Cholecalciferol (Vitamin D3) (VITAMIN D3) 1,000 Unit Tablet, 1 TAB PO QDAY, TAB 09/15/15 Zinc Amino Acid Chelate (ZINC) 50 Mg Tablet, 1 TAB PO QDAY 09/15/15 Glucosamine/Chondro Hughes A (COSAMIN DS TABLET) 1 Each Tablet, 1 EACH PO QDAY 09/15/15 Allergies: Coded Allergies: No Known Drug Allergies (Unverified , 04/15/17) Review of System/Physical Exam Review of Systems All Systems Reviewed/Normal: Yes, Except as Noted Cardiovascular: Positive for Chest Pain Gastrointestinal: Heart Burn Hematologic: Positive for Fatigue, Positive for Weakness Neurologic: Other (dizziness and disorientation thought to be related to edema noted on recent CT of the head) Psychiatric: Other ( and daughter are with him today) Physical Exam Vital Signs Temperature: 98.2 Pulse: 69 BP Systolic: 134 BP Diastolic: 88 Respiratory Rate: 16 O2 SAT: 92 O2 Delivery: Height (inches) 64.50 Weight lb: 150 Weight oz: Weight Kg (Sarkis): Pain: 2 ECOG Score: 2 General: Stable, Well Developed, Well Nourished, Not In Acute Distress HEENT: No Trauma, No Conjunctivitis, No Icterus, No Mucositis, No Oral Thrush Neck: Supple Lungs: Not Clear to Auscultation (bilateral expiratory wheezing. Patient is a known smoker. No shortness of breath or decreased saturations.) Heart: Regular Rate, Regular Rhythm, No Gallops Abdomen: Soft and Nontender, No Hepatosplenomegaly, No Masses, Other (bowel sounds are active) Extremities: No Cyanosis, No Clubbing, No Edema Lymphadenopathy: No Cervical Psychiatric: Mood appears normal, Affect appears normal Skin: No Skin Rashes, No Bruising Diagnostic Studies Diagnostic Studies Laboratory Laboratory Tests 05/20/17 12:40 Laboratory Tests 04/09/17 13:25: Alpha Fetoprotein 4, Carcinoembryonic Antigen 2.7, CA 19-9 Antigen 11, Chromagranin A 680, Prostate Specific Antigen 1.61 05/14/17 10:30: Red Blood Count 4.67, Mean Corpuscular Volume 90.0, Mean Corpuscular Hemoglobin 30.7, Mean Corpuscular Hemoglobin Concent 34.1, Red Cell Distribution Width 16.2 , Mean Platelet Volume 7.7, Monocytes (%) (Auto) , Eosinophils (%) (Auto) , Basophils (%) (Auto) , Nucleated RBC Relative Count (auto) , Monocytes # (Auto) , Eosinophils # (Auto) , Basophils # (Auto) , Nucleated RBC Absolute Count (auto ) , Neutrophils % (Manual) 78, Band Neutrophils % 10, Lymphocytes % (Manual) 4, Atypical Lymphocytes % 2, Monocytes % (Manual) 6, Eosinophils % (Manual) 0, Basophils % (Manual) 0, Macrocytosis 1+, Peripheral Blood Smear Yes 05/20/17 12:40: White Blood Count 15.5, Hemoglobin 14.0, Hematocrit 41.3, Platelet Count 171, Neutrophils (%) (Auto) 85.7, Lymphocytes (%) (Auto) 8.6, Neutrophils # (Auto) 13.3, Lymphocytes # (Auto) 1.3, Sodium Level 139, Potassium Level 3.1, Chloride Level 102, Carbon Dioxide Level 26, Blood Urea Nitrogen 18, Creatinine 0.90, Glomerular Filtration Rate Calc > 60.0, Random Glucose 98, Calcium Level 9.0, Total Bilirubin 0.3, Aspartate Amino Transf (AST/SGOT) 20, Alanine Aminotransferase (ALT/SGPT) 30, Alkaline Phosphatase 136, Total Protein 6.2, Albumin 3.4 Radiology FINDINGS: The basal cisterns and convexity sulci are maintained. No intracranial hemorrhage, hydrocephalus or midline shift. Normal orbital soft tissues. [facility] [address] [place], [place] [address] Posttreatment-related left frontal lobe hypoattenuation versus vasogenic edema has increased. Clear mastoid air cells, tiny left maxillary sinus mucous retention cyst and normal osseous structures. Left medial cerebellar 4.4 mm enhancing nodule has increased in conspicuity. This was likely present on prior but less distinct and is likely unchanged in size. 2 mm right frontal lobe enhancing nodule, axial image 50 is not definitively seen on prior exam. Inferior medial bilateral frontal lobe white matter hypoattenuation is unchanged on the right and has decreased on the left. 2 mm right frontal white matter enhancing nodule, image 32 is not definitively seen on prior. Medial inferior left frontal region 1 cm nodule has decreased in size, axial image 31. Left thalamic 3.6 mm nodule has decreased in size, axial image 36. Right frontal region 2 mm enhancing nodule, image 53 has decreased in size. Right frontal lobe 4 mm enhancing nodule, image 50 has decreased in size. Inferior right frontal region 4.5 mm nodule, image 30 has decreased in size. Punctate left temporal nodule has decreased in size, axial image 27. The additional previously seen enhancing nodules have either resolved or have decreased in size and are not visible by CT. Equivocal new punctate left posterior ellie enhancing nodule, axial image 25. IMPRESSION: 1. Resolution or decrease in size of the multiple previously seen metastatic lesions. 2. 4.4 mm left cerebellar enhancing nodule has increased in conspicuity and was likely present on prior exam. This is likely unchanged in size. 3. 2 mm new right frontal lobe enhancing nodule. Equivocal new punctate enhancing lesion in the left posterior ellie. 4. Left frontal lobe parenchymal hypoattenuation has increased and may reflect posttreatment related change or vasogenic edema or a combination Assessment and Plan Assessment & Plan Metastatic disease of unknown primary status post left inguinal lymph node biopsy done on March 06, 2017 which came back positive for poorly differentiated carcinoma positive for cytokeratin 7 and markers for lung, breast , kidney, gynecologic tumors, bladder and squamous cell carcinoma all came back negative. He had also a fine needle biopsy of the left neck mass on February which came back positive for poorly differentiated carcinoma. PET scan showed widespread metastatic disease. Given that his tumor is poorly differentiated, the NCCN guidelines recommend treatment similar to small cell lung cancer and because of his performance status. Dr. Nicole preferred to treat him with carboplatin and etoposide. The patient will started treatment on April 08, 2017 and he will received Neulasta 6 mg subcutaneously on day 4 each cycle. Pathology was asked to run molecular markers and to check for PD-L1 ALK mutation, KRAS and BRAS mutations, EGFR mutation and ROS1 mutation to see if there is any target we can use for his treatment in the future if needed. This is currently pending. He will receive cycle 3 today He will have weekly CBC and a chem panel. I will repeat chromogranin A and a today. This was obtained in April and was noted to be 690. Family is interested in repeating a PET scan to see if patient is having disease response. At this time I'll wait until after cycle 4 and at the chromogranin A is decreased this could be an indicator of response. 2. Brain metastasis status post radiation therapy completed on March 20, 2017. Patient had recent CT scan, see above for results. Follow-up with radiation oncology yesterday, patient was restarted on Decadron 2 mg daily for edema and dizziness. 3. Bone metastasis: Consider radiation therapy of the bone if the patient will develop pain in that area and consider also Xgeva treatment in the future after dental treatment. 4. Hepatic metastasis and lung metastasis: Continue to monitor, liver enzymes are currently within normal limits. 5. Hypokalemia. Patient's current potassium level is 3.1 possibly related to to diarrhea. I will start patient on potassium supplement 20 g daily and I'll continue to monitor potassium level. 6. Patient reported acute chest pain that came and left quickly and has not returned today. EKG was completed last cycle for similar chest pain discomfort. Patient is noted to have a right bundle branch block without significant changes from previous EKG. Patient will be referred to cardiology for further evaluation. PLAN 1. Obtain Pathology from the molecular biomarkers. 2. chromogranin A to be drawn today 3. Carboplatin and etoposide cycle 3 day 1. Patient to follow Dr. Nicole with next cycle 4. Neulasta 6 mg subcutaneously to be given 24 hours after the end of the cycle which will be day 4. 5. CBC and chem panel to be checked weekly after chemotherapy. 6. Patient is currently on dexamethasone 2 mg tablet managed by radiation oncology 7. Potassium 20 g daily prescription sent to [facility]. 8. Cardiology referral I personally spent a total of 30 minutes. Of that 30 minutes was counseling/ coordination of patient's care. See my note above for details. Copies to: BHARATH KENYON MD, NANCY J NURSE AIDE-BC, ONC May 20, 2017 15:19
[2017-05-20 16:54] VITALS: BP 124/71
[2017-05-21] MEDS: DEXAMETHASONE SOD PHOS 10MG/ML IVP PRN (12:40)
[2017-05-21] MEDS: NS(*) 0.9% 500 ML BAG 500 ML IV PRN (12:40)
[2017-05-21 13:18] VITALS: BP 134/88
[2017-05-21 14:21] VITALS: BP 146/75
[2017-05-21] MEDS: HEPARIN FLSH (PORT) 500 UN/5ML IVP PRN (14:27)
[2017-05-22 12:33] VITALS: BP 135/84
[2017-05-22] MEDS: NS(*) 0.9% 500 ML BAG 500 ML IV PRN (12:37)
[2017-05-22] MEDS: HEPARIN FLSH (PORT) 500 UN/5ML IVP PRN ×2 (12:37→14:48)
[2017-05-22] MEDS: DEXAMETHASONE SOD PHOS 10MG/ML IVP PRN (12:37)
[2017-05-22 14:46] VITALS: BP 146/84
[2017-05-27 09:57] VITALS: BP 119/70
[2017-05-27 10:23] LABS: PLATELET COUNT, AUTOMATED 187 K/uL (150-450)
[2017-06-03 09:34] VITALS: BP 141/86
[2017-06-03 10:12] LABS: PLATELET COUNT, AUTOMATED 105 K/uL (150-450)
[2017-06-05] MEDS: LIDOCAINE/SOD BICARB 8.4% SYR ID PRN (11:29)
--- NOTE | 2017-06-05 14:35 | RADIOLOGY IMAGING REPORT ---
FACILITY: [facility] PATIENT NAME: Erwin Daniels : 1945 MR: [id number] V: [id number] EXAM DATE: ORDERING PHYSICIAN: DUANE JASSO TECHNOLOGIST: Location: [facility] [place] Patient: Erwin Daniels : 1945 Visit/Account:[id number] Date of Sevice: 06/05/2017 EXAMINATION: CT Head without intravenous contrast CT Head with intravenous contrast HISTORY: Dizziness. Metastatic cancer. TECHNIQUE: Contiguous axial images were obtained from the skull base to the vertex before and after IV contrast. Sagittal and coronal reformatted images are also submitted. One of the following dose optimization techniques was utilized in the performance of this exam: Autom ated exposure control; adjustment of the mA and/or kV according to the patient's size; or use of an i terative reconstruction technique. Specific details can be referenced in the facility's radiology C T exam operational policy. CONTRAST: 75 mL of IV Isovue-370 COMPARISON: Head CT with and without contrast dated 05/14/2017. Soft tissue neck CT dated 01/28/2017. FINDINGS: Brain volume: Mild generalized volume loss. Ventricles: Negative. Acute ischemic changes: None. Hemorrhage: None. Masses / edema: Stable brain parenchymal metastases. There are at least 6 metastases in the cerebell um and supratentorial brain. The largest is in the medial anterior left frontal lobe measuring 11 x 6 mm. No significant mass effect. Enhancement: Otherwise negative. Morales-white: Encephalomalacia in the anterior frontal lobes, left greater than right. White matter: Moderate chronic microvascular ischemic changes. Vessels: Mild carotid siphon calcifications. Extra-axial: Negative. Calvarium / skull base: Negative. Visualized sinuses / orbits: Mild mucosal thickening in the maxillary sinuses. Leftward nasal septal deviation. Stable masses and the right parotid gland. IMPRESSION: Stable metastases compared with 05/14/2017. Report Dictated By: Juno Christensen MD at 06/05/2017 2:22 PM Report E-Signed By: Juno Christensen MD at 06/05/2017 2:31 PM WSN:[id number]
[2017-06-05 14:56] VITALS: BP 128/74
[2017-06-05 15:26] VITALS: BP 156/82
[2017-06-05] MEDS: HEPARIN FLSH (PORT) 500 UN/5ML IVP PRN (15:29)
[2017-06-06 12:28] VITALS: BP 137/77
--- NOTE | 2017-06-09 03:47 | EL-TARABILY ONCOLOGY NOTE ---
EVENT DATE: June 06, 2017 DIAGNOSES 1. Metastatic disease of unknown primary. 2. Brain metastasis. 3. Bone metastasis. 4. Hepatic metastasis. 5. Lung metastasis. CHIEF COMPLAINT Patient is here today for cycle number four of chemotherapy with carboplatin and etoposide for this metastatic disease of unknown primary. ONCOLOGY HISTORY The patient is a 71-year-old male who presented to the emergency department at [facility] on February 27, 2017 complaining of dizziness, nausea and vomiting. Noncontrast CT scan of the brain done at [facility] on February 27, 2017 showed no evidence of hemorrhage, mass or other acute process. He then had a limited MRI of the brain on February 27, 2017 showing 2.4 cm lesion within the left thalamus. MRI study could not be completed due to significant artifact from likely a metallic foreign body within the orbit soft tissues adjacent to the left globe. Contrast CT scan of the head was done showing 2 cm enhancing lesion of the left thalamus. The patient had PET/CT scan done in [place] on February 26, 2017 which showed widespread metastatic disease including several small pulmonary nodules in the right upper lobe, extensive hepatic metastasis, pelvic bone metastasis, and cervical and left inguinal paul metastasis. There was a mass in the right parotid gland likely metastatic intraparotid lymph node rather than a primary parotid tumor. The patient had multiple biopsies. 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 On February 12, 2017, he had a left neck mass fine needle aspiration which came back positive for poorly differentiated carcinoma. 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 Markers for the lung, breast, kidney, gynecologic tumors, bladder tumors and squamous cell carcinoma all came back negative. The patient completed radiation therapy to the brain on March 20, 2017. Patient started chemotherapy with carboplatin and etoposide on April 08, 2017. HISTORY OF PRESENT HISTORY Patient is here today for his cycle number four of carboplatin and etoposide for his metastatic disease, unknown primary. The patient so far is tolerating treatment reasonably well. He has some cough due to smoker's cough. He has wheezing also. He has pain in his legs. He had dizzy spells yesterday, improved with IV fluids. He is weak, tired and fatigued. PAST MEDICAL HISTORY Significant for psoriasis. PAST SURGICAL HISTORY He had appendectomy. SOCIAL HISTORY The patient is with 4 children. 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 He is a smoker. He has about 60 pack years of tobacco abuse. He is currently smoking less than 1 pack a day. He occasionally has a glass of wine on Sundays. He denies any abuse of illicit drugs. FAMILY HISTORY He had brain cancer in 2 sisters. CURRENT MEDICATIONS 1. Sulfamethoxazole/trimethoprim 800/160 mg. 2. Bactrim 1 tablet orally daily. 3. Dexamethasone 3 mg daily. 4. Levetiracetam 500 mg twice daily. 5. Protonix 40 mg daily. 6. Folic acid 1 mg daily. 7. Garlic 1000 mg capsule daily. 8. Methotrexate 2.5 mg, 15 mg every week. 9. Fluocinonide 60 mg solution. 10. Clobetasol protonate 15 g ointment for psoriasis. 11. Triamcinolone Acetonide 0.5% topical daily. 12. Vitamin D3, 1000 units daily. 13. Zinc amino acid 50 mg daily. 14. Glucosamine 1 tablet daily. ALLERGIES No known drug allergies. REVIEW OF SYSTEMS CONSTITUTIONAL: No appetite or weight change. No fever, chills or sweating. No recent infection. HEENT: Ears: No tinnitus or hearing problem. Nose: No nasal discharge or epistaxis. Throat: No sore throat or mouth ulcers. Eyes: No diplopia or visual changes. RESPIRATORY: Patient has some cough due to smoking and wheezing. CARDIOVASCULAR: No chest pain, orthopnea, or paroxysmal nocturnal dyspnea (PND) . No edema. No palpitations. GASTROINTESTINAL: No nausea or vomiting. No diarrhea or constipation. No change in bowel movements. No heartburn or swallowing difficulties. No abdominal pain. No jaundice. No hematemesis, melena or rectal bleeding. GENITOURINARY: No hematuria or dysuria. MUSCULOSKELETAL: He has leg pain. NEUROLOGICAL: He has dizzy spells. HEMATOLOGIC/LYMPHATIC: He is weak, tired and fatigued. SKIN: No skin rash or lumps. PSYCHIATRIC: No anxiety or depression. PHYSICAL EXAMINATION GENERAL: Looks stable. Well-developed, well-nourished, and in no acute distress. VITAL SIGNS: Blood pressure 137/77, pulse 82 per minute, respirations 15 per minute, temperature 97, pulse oximetry 92% on room air. HEENT: Head: Atraumatic. No sinus tenderness to palpation. Eyes: No icterus or conjunctivitis. Mouth and throat: No oral thrush or mucositis. NECK: Supple. No cervical or supraclavicular lymphadenopathy. LUNGS: Clear to auscultation and percussion bilaterally. HEART: Regular rate and rhythm. No gallops, murmurs, clicks or rubs. ABDOMEN: Soft and lax. No tenderness. No hepatosplenomegaly. No masses. EXTREMITIES: No cyanosis, clubbing or edema. LYMPHATICS: No peripheral lymphadenopathy. NEUROLOGICAL: Conscious, alert and oriented times three. No focal motor or sensory deficits. PSYCHIATRIC: Mood and affect appear normal. SKIN: No skin rash, bruise or purpuric eruption. DIAGNOSTIC DATA CBC showed white count 8100, hemoglobin 13.4, hematocrit 39.5, platelets 105, 000. Chem panel showed potassium 3.3, carbon dioxide 19, blood sugar 163, alkaline phosphatase 147. Other parameters are normal. Chromogranin A is 634, which is down from 680. CT head done on June 05, 2017 showed stable brain metastasis. ASSESSMENT 1. Metastatic disease, unknown primary, status post left inguinal lymph node biopsy done March 06, 2017 which came back positive for poorly differentiated carcinoma positive for cytokeratin 7 and markers for lung, breast , kidney, gynecologic tumors, bladder and squamous cell carcinoma all came back negative. Patient had also fine needle biopsy of the left neck mass on February 12, 2017 which came back positive for poorly differentiated carcinoma. PET scan showed widespread metastatic disease. Given that his tumor is poorly differentiated, the NCCN guidelines recommend treatment similar to small cell lung cancer and because of his performance status, carboplatin and etoposide was chosen as a reasonable option for him. Patient started chemotherapy with carboplatin and etoposide April 08, 2017. He finished three cycles already, and I am planning to proceed with his fourth cycle. I am planning to check a CBC, chem panel weekly after his chemotherapy, and I am planning also to administer Neulasta 6 mg after each cycle of chemotherapy. We will bring the patient back again with CBC, chem panel and chromogranin A prior to the next cycle of chemotherapy. The plan is after six cycles of chemotherapy, will get a PET scan for further evaluation. 2. Brain metastasis status post radiation therapy completed March 20, 2017. 3. Bone metastasis. Consider Xgeva treatment in the future after the end of treatment. 4. Hepatic metastasis and lung metastasis. Patient currently on chemotherapy for that. 5. Chemotherapy-induced thrombocytopenia. Current platelet count 105,000. No hematological intervention is required at the moment. PLAN 1. Carboplatin and etoposide. This will be cycle number four. 2. CBC, chem panel to be checked weekly. 3. Neulasta 6 mg after chemotherapy. 4. Patient to return in three weeks with CBC, chem panel and chromogranin A.. 5. Patient to contact us for any new concerns or complaints. MTDD
[2017-06-10] MEDS: PALONOSETRON 0.25 MG/5 ML VIAL IVP PRN (13:17)
[2017-06-10] MEDS: NS(*) 0.9% 500 ML BAG 500 ML IV PRN (13:18)
[2017-06-10] MEDS: LIDOCAINE/SOD BICARB 8.4% SYR ID PRN (13:18)
[2017-06-10] MEDS: DEXAMETHASONE SOD PHOS 10MG/ML IVP PRN (13:18)
[2017-06-10] MEDS: HEPARIN FLSH (PORT) 500 UN/5ML IVP PRN ×2 (13:19→16:47)
[2017-06-10] MEDS: FOSAPREPITANT DIM 150 MG/5 ML 150 MG in NS(*) 0.9% 250 ML BAG 245 ML IVPB PRN (13:44)
[2017-06-10 16:45] VITALS: BP 154/98
[2017-06-11] MEDS: NS(*) 0.9% 500 ML BAG 500 ML IV PRN (12:53)
[2017-06-11] MEDS: DEXAMETHASONE SOD PHOS 10MG/ML IVP PRN (12:54)
[2017-06-11 13:00] VITALS: BP 138/79
[2017-06-11] MEDS: HEPARIN FLSH (PORT) 500 UN/5ML IVP PRN (14:28)
[2017-06-11 14:30] VITALS: BP 142/80
[2017-06-12 12:27] VITALS: BP 136/82
[2017-06-12] MEDS: DEXAMETHASONE SOD PHOS 10MG/ML IVP PRN (12:47)
[2017-06-12] MEDS: HEPARIN FLSH (PORT) 500 UN/5ML IVP PRN (14:19)
[2017-06-12] MEDS: NS(*) 0.9% 500 ML BAG 500 ML IV PRN (14:20)
[2017-06-12 14:33] VITALS: BP 154/85
[2017-06-17 09:40] VITALS: BP 140/68
[2017-06-17 09:43] LABS: PLATELET COUNT, AUTOMATED 181 K/uL (150-450)
[~2017-06-24] VITALS: Ht 163.8 cm; Wt 78.4 kg
[~2017-06-24 09:18] MED LIST changes: +ALTEPLASE RECOMB 2 MG VIAL IVP PRN; +CARBOPLATIN IVPB ONE; +D5W VISIV IV ONE; +DEXTROSE 5%(*) 100 ML BAG 100 ML IVPB PRN; +ETOPOSIDE IV ONE; -NS 0.9% 20 ML SDV 20 ML ONE; +NS 0.9% IV ONE; +NS 0.9% IVPB ONE; +NS(*) 0.9% 100 ML BAG 100 ML IVPB PRN; +NS(*) 0.9% 1000 ML BAG 2,000 ML IV PRN; +PEGFILGRASTIM 6 MG/0.6 ML KIT SUBQ ONE; +PEGFILGRASTIM 6 MG/0.6 ML SYR SUBQ ONE; +POTA20TA85 PO; +WATER STERILE 10 ML VIAL IVP PRN
[2017-06-24 09:29] VITALS: BP 134/75
[2017-06-24 09:42] LABS: PLATELET COUNT, AUTOMATED 105 K/uL (150-450)
== END 2017-06-25 ==
LOC: SPU 09:18
PROVIDERS: ATTEND Internal Medicine Hematology
DX: Z51.11 Encounter for antineoplastic chemotherapy (principal); C80.1 Malignant (primary) neoplasm, unspecified; C79.31 Secondary malignant neoplasm of brain; C79.51 Secondary malignant neoplasm of bone; C78.7 Secondary malignant neoplasm of liver and intrahepatic bile duct; C78.00 Secondary malignant neoplasm of unspecified lung; Z92.3 Personal history of irradiation; F17.210 Nicotine dependence, cigarettes, uncomplicated; Z79.899 Other long term (current) drug therapy; R53.1 Weakness; R53.83 Other fatigue; I45.10 Unspecified right bundle-branch block; R00.1 Bradycardia, unspecified; R94.31 Abnormal electrocardiogram [ECG] [EKG]; E87.6 Hypokalemia; R19.7 Diarrhea, unspecified; D69.59 Other secondary thrombocytopenia; J41.0 Simple chronic bronchitis; R06.2 Wheezing; M79.605 Pain in left leg; M79.604 Pain in right leg; R42 Dizziness and giddiness
CPT/HCPCS: 36415; 70470; 81001; 82105; 82378; 84153; 85025; 85027; 86301; 86316; 87088; 93005; 96367; 96372; 96375; 96413; 96417; G0463; J1100; J1453; J1642; J2469; J2505; J7040; J7050; J7060; J9045; J9181; Q9967; 82040; 82247; 82310; 82374; 82435; 82565; 82947; 84075; 84132; 84155; 84295; 84450; 84460; 84520; 99202; 99212

== ENCOUNTER 2017-07-24 12:30 | Outpatient (RCR) | payer MEDICARE ==
--- NOTE | 2017-05-14 12:26 | PT INITIAL EVALUATION ---
MEDICAL DIAGNOSIS: Metastatic Squamous Cell Carcinoma TREATMENT DIAGNOSIS: Metastatic Squamous Cell Carcinoma DATE OF ONSET: 02/27/17 SUBJECTIVE: Erwin is a 71 year-old male presenting to physical therapy following recent diagnosis of poorly differentiated SCC with mets to the brain, lung, liver, pelvis, and cervical and inguinal lymph nodes. Pt was diagnosed following presenting to the ER with stroke like symptoms with imaging revealing extensive spread of disease. Pt is currently between his 2nd and 3rd chemotherapy cycles out of an anticipated 6 cycles. Pt also underwent radiation treatment initially for the brain mets. Pt was previously seeing home health services, but has since been discharged and are seeking outpatient services. Pt currently has moderate back pain in the lumbar spine without radiation rated at 5/10. In addition pt has had decreased physical activity and mobility secondary to onset of dizziness which is primarily positional. Pt reports frequent leaning to the R side, but reports no falls. John was previously very active performing handy work around the house and working on vehicles. Pt also reports occasional L LE swelling. REHAB PROBLEM LIST: Increased Pain Decreased Strength Impaired Transfers Decreased Endurance Decreased Function Decreased ADL's Decreased Mobility Decreased Gait PREVIOUS MEDICAL HISTORY: See EMR OBJECTIVE: Posture: Flat lumbar spine with poor seated posture. Strength: LE MMT: Hip: flexion: L 4/5, R 4+/5, Ext: B 4+/5, Abd: L 4+/5, R 5/5, Add: B 5/5. Knee: Flexion: B 5/5, Ext: B 4+/5. Ankle: PF: B 4+/5, DF: B 5/5. Special Tests: Mini-Co/, additional pt and spouse reports of pt having swallowing difficulty. Mobility: ECOG Performance Status: grade 3 Gait: Pt typically ambulates with quad cane or walker. Pt has significant trunk sway with ambulation. Balance: [place]: (+) L, resting nystagmus with R lateral beating and increased with R lateral eye movements. Other Objective Findings: FACT-G: PWB: 9.3, SWB: 24.09/01, EWB: 08/28, FWB:, Total: 62.8/108 ASSESSMENT: Erwin shows signs and symptoms consistent with brain metastasis diagnosis as well as generalized weakness and deconditioning from oncology diagnosis and treatment. Resting vertigo likely is attributed with a combination of BPPV as well as vestibular hypofunctioning secondary to cranial lesions. Back pain was not assessed at this time, but will be further assessed with continued treatment. Physical therapy is indicated to address the above listed deficits to return pt to prior level of function as well as decrease side-effects with ongoing oncological treatment. In addition CLINICAL CASE MANAGER and Social Work services are warranted to address functional deficits in memory, swallowing, and emotional processing. Short Term Goals In 3 weeks pt will report no dizziness at rest and no dizziness onset with positional changes from supine to seated for increased stability and function with ADL's. In 6 weeks pt will report back pain reduced to <3/10 for improved functional mobility with ADL's. In 8 weeks pt will increase FACT-G well-being to >70/108 for improved function with ADL's. In 8 weeks pt will improve ECOG performance Status to 2 for improved functional mobility and improved oncological outcomes. Patient's Goals Decrease dizziness and back pain, return to functioning. PLAN: Patient to be seen for Manual Therapy/STM/MET Strengthening/condition Ice/Heat Range of Motion Spinal Stabilization Ultrasound Stretching Iontophoresis Neuromuscular Re-ed Closed Chain Program Electrical Stim Posture/Body mechanics Gait Trg/Balance Trg Biofeedback [facility]Manual Traction Therapeutic Activities Pelvic Floor 1-2x/Week for 4 Months If you have any questions, comments, or concerns about this report or plan, please contact me at . Thank you, Jo Franco, PT, DPT, CLT MTDD
[2017-05-16 15:49] VITALS: BP 153/87
--- NOTE | 2017-05-28 10:42 | SPEECH INITIAL EVALUATION ---
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 The patient was referred for a ST evaluation for secondary swallow and cognitive deficits from cancer treatment. COGNITION Cognitive Linguistic Quick Test (CLQT) assesses the relative status of the following five cognitive domains: attention, memory, language, executive functions, and visuospatial skills. This test helps to identify relative strengths and weakness in these five areas. RESULTS of CLQT Severity Attention: No deficit: 160/215 (WNL =160-215) Memory: No deficit: 158/185 (IIU=467-283) Executive Functions: Mild deficit: 17/40 (WNL= 19-40) Language: Mild deficit: 27/37 (WNL=28-37) Visuospatial Skills: mild 75/105 (WNL=62-105) Composite Severity Rating: No deficits 3.6/4.0 (WNL=3.5-4.0) The CLQT assessed the five domains listed above and the patients overall score was WNL. However, mild deficits were noted in executive function (i.e., symbol trails and design generation) and language(i.e., word generation) domains. The patient demonstrated reduced self-monitoring and planning during the symbol trails task. During the word generation task, the patient subcategorized animals to aid in word retrieval (e.g., pets and farm animals). A rapid decay in naming was noted with each 15 second window. SPEECH: Articulation of speech sounds at word, sentence, and conversational level is WNL. VOICE: Within functional limits ORAL MECHANISM: -Lips: symmetrical and WNL for swallow function -Tongue: Symmetrical and adequate ROM for swallow function. -Teeth: Missing top and bottom molars. Adequate for mastication. Patient reports pain in teeth at times when chewing. -Soft palate: WNL for speech and swallow function DYSPHAGIA: The patient and his report deficits in swallowing. The patient expressed that his current primary deficit involves Xerostomia. Dysphagia Severity Rating Scale: Level 2: Mild dysphagiaoropharyngeal dysphagia present, which can be managed by specific swallow suggestions. Slight modification in consistency of diet may be indicated. EUGENIE NOMS Swallow Scale Score: Level 6: Swallowing is safe, and the individual eats and drinks independently and may rarely require minimal cueing. The individual usually self-cues when difficulty occurs. May need to avoid specific food items (e.g., bread and crackers), or require additional time (due to dysphagia). Sialorrhea: No Xerostomia: Yes Supplemental Oxygen Use: No COPD Dx: No Oral Structure and Function: Within functional limits for speech and swallow. Some missing top and bottom molars. Patient reports occasional pain in teeth when chewing. However, this does not impact his mastication ability. Pain with Swallow: Denies EAT 10: No current indication of a swallowing problem. Patient completed the Eat 10 assessment tool yielding a score of 3. A score of greater than 3 may indicate a swallowing problem. Oral Stage Oral Stage Dysphagia: Mild with solid foods Self Feeds: Yes Compensatory Maneuvers Used: None Assistance Required: None Comment: Mild cracker residue on tongue. Successfully cleared with second swallow or sip of water. Pharyngeal Stage Pharyngeal Stage Dysphagia: No s/s of acute pharyngeal stage dysphagia including penetration/ aspiration with liquids or foods. Compensatory Maneuvers Used: None Assistance Required: None Indication of acute aspiration witnessed or reported by patient, family or staff : No Aspiration Risk: Increased 2nd to Lung cancer, mild oral dysphagia, patient is geriatric 64+ Comment: No coughing , throat clearing, or other s/s in 4/4 trials of thin liquid or 3/3 trials of solid. Esophageal Stage Esophageal Stage Dysphagia Indicated: No Odynophagia at/below Suprasternal Notch: Denies Globus Sensation at/below Suprasternal Notch: Denies Compensatory Maneuvers Used: None Assistance Required: None SUMMARY COGNITION/LANGUAGE SUMMARY The CLQT assessed the five domains listed above and the patients overall score was WNL. However, mild deficits were noted in executive function (i.e., symbol trails and design generation) and language(i.e., word generation) domains. The patient demonstrated reduced self-monitoring and planning during the symbol trails task. During the word generation task, the patient subcategorized animals to aid in word retrieval (e.g., pets and farm animals). A rapid decay in naming was noted with each 15 second window. FUNCTIONAL COMMUNICATION The patient presents with mild deficits in executive function and language domains. Deficits may reduce functional communication at home or in the community. The patient will benefit from ST to address current deficits and allow him to cope and compensate for cognitive changes that may occur throughout his cancer treatment. DYSPHAGIA Patient presents with mild oral dysphagia as characterized by Xerostomia. This causes the patient to experience difficulty with dry foods and with taking pills. RECOMMENDATIONS 1.Speech Therapy: 2x/wk for 12 weeks Prognosis: Good. Patient is motivated and has good support from spouse. PLAN OF CARE Short Term Goals 1. Patient will receive education regarding safe swallow precautions, exercises/ stretches, and compensatory techniques and provide verbal demonstration of comprehension. 2. The patient will perform executive function (i.e. thought organization and planning) for successful functional communication independently at 95%. 3. The patient will perform word finding tasks to increase expressive language performance with 90% accuracy independently. Long-Term Goals 1. The patient will perform everyday expressive language tasks for successful functional communication related to patient independence. 2. The patient will perform executive function for successful functional communication related to patient independence. 3. The patient will participate in an 12wk oropharyngeal dysphagia exercise based therapy program to address dysphagia throughout cancer treatments. Thank you for this referral. Please call [phone] Yuni Soto M.S., CCC-LINER MACHINE OPERATOR, Veronique Monetrroso, [facility] Physician Signature Date [facility]
[~2017-07-24 12:30] MED LIST changes: -ALTEPLASE RECOMB 2 MG VIAL IVP PRN; -CARBOPLATIN IVPB ONE; -D5W VISIV IV ONE; -DEXTROSE 5%(*) 100 ML BAG 100 ML IVPB PRN; -ETOPOSIDE IV ONE; -IOPAMIDOL 76% 75 ML INFUS BTL 75 ML ONE; -NS 0.9% IV ONE; -NS 0.9% IVPB ONE; -NS(*) 0.9% 100 ML BAG 100 ML IVPB PRN; -NS(*) 0.9% 1000 ML BAG 2,000 ML IV PRN; -PEGFILGRASTIM 6 MG/0.6 ML KIT SUBQ ONE; -PEGFILGRASTIM 6 MG/0.6 ML SYR SUBQ ONE; -WATER STERILE 10 ML VIAL IVP PRN
== END 2017-08-12 ==
LOC: PT 12:30
PROVIDERS: ATTEND Internal Medicine Hematology
DX: M54.5 Low back pain (principal); R42 Dizziness and giddiness; R60.0 Localized edema; M62.81 Muscle weakness (generalized); Z92.3 Personal history of irradiation; Z92.21 Personal history of antineoplastic chemotherapy; C79.31 Secondary malignant neoplasm of brain; C80.1 Malignant (primary) neoplasm, unspecified; M25.551 Pain in right hip
CPT/HCPCS: 36415; 82040; 82247; 82310; 82374; 82435; 82565; 82947; 84075; 84132; 84155; 84295; 84450; 84460; 84520; 97163

== ENCOUNTER 2017-08-19 09:00 | Outpatient (RCR) | payer MEDICARE ==
[2017-08-19] MEDS ORDERED: OXYC-823 PO (16:42)
[2017-08-20] MEDS ORDERED: NAPR-1043 PO (11:43)
== END 2017-08-21 09:23 | disposition home or self-care (01) ==
LOC: RAON 09:00
PROVIDERS: ATTEND Radiology Radiation Oncology
DX: Z51.0 Encounter for antineoplastic radiation therapy (principal); C80.1 Malignant (primary) neoplasm, unspecified; C79.89 Secondary malignant neoplasm of other specified sites; Z79.899 Other long term (current) drug therapy
CPT/HCPCS: 77280; 77290; 77295; 77300; 77334; 77412

== ENCOUNTER 2017-08-19 10:00 | Outpatient (RCR) | payer MEDICARE ==
[2017-06-27 14:58] VITALS: BP 127/76
--- NOTE | 2017-06-29 08:07 | EL-TARABILY ONCOLOGY NOTE ---
EVENT DATE: June 27, 2017 DIAGNOSES 1. Metastatic disease of unknown primary. 2. Brain metastasis. 3. Bone metastasis. 4. Hepatic metastasis. 5. Lung metastasis. CHIEF COMPLAINT Patient is here today for cycle number five of chemotherapy with carboplatin and etoposide for his metastatic disease, unknown primary. ONCOLOGY HISTORY The patient is a 71-year-old male who presented to the emergency department at [facility] on February 27, 2017 complaining of dizziness, nausea and vomiting. Noncontrast CT scan of the brain done at [facility] on February 27, 2017 showed no evidence of hemorrhage, mass or other acute process. He then had a limited MRI of the brain on February 27, 2017 showing 2.4 cm lesion within the left thalamus. MRI study could not be completed due to significant artifact from likely a metallic foreign body within the orbit soft tissues adjacent to the left globe. Contrast CT scan of the head was done showing 2 cm enhancing lesion of the left thalamus. The patient had PET/CT scan done in [place] on February 26, 2017 which showed widespread metastatic disease including several small pulmonary nodules in the right upper lobe, extensive hepatic metastasis, pelvic bone metastasis, and cervical and left inguinal paul metastasis. There was a mass in the right parotid gland likely metastatic intraparotid lymph node rather than a primary parotid tumor. The patient had multiple biopsies. 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 On February 12, 2017, he had a left neck mass fine needle aspiration which came back positive for poorly differentiated carcinoma. 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 Markers for the lung, breast, kidney, gynecologic tumors, bladder tumors and squamous cell carcinoma all came back negative. The patient completed radiation therapy to the brain on March 20, 2017. Patient started chemotherapy with carboplatin and etoposide on April 08, 2017. HISTORY OF PRESENT HISTORY Patient is here today for cycle number five of carboplatin and etoposide for his metastatic disease, unknown primary. The patient is doing fine, tolerating treatment so far well for his age. He is complaining of one episode of diarrhea for two days a week ago, which resolved already. He has some pain from the right hip down. He bruises easily. He is weak, tired and fatigued. PAST MEDICAL HISTORY Significant for psoriasis. PAST SURGICAL HISTORY He had appendectomy. SOCIAL HISTORY The patient is with 4 children. 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 He is a smoker. He has about 60 pack years of tobacco abuse. He is currently smoking less than 1 pack a day. He occasionally has a glass of wine on Sundays. He denies any abuse of illicit drugs. FAMILY HISTORY He had brain cancer in 2 sisters. CURRENT MEDICATIONS 1. Sulfamethoxazole/trimethoprim 800/160 mg. 2. Bactrim 1 tablet orally daily. 3. Dexamethasone 3 mg daily. 4. Levetiracetam 500 mg twice daily. 5. Protonix 40 mg daily. 6. Folic acid 1 mg daily. 7. Garlic 1000 mg capsule daily. 8. Methotrexate 2.5 mg, 15 mg every week. 9. Fluocinonide 60 mg solution. 10. Clobetasol protonate 15 g ointment for psoriasis. 11. Triamcinolone Acetonide 0.5% topical daily. 12. Vitamin D3, 1000 units daily. 13. Zinc amino acid 50 mg daily. 14. Glucosamine 1 tablet daily. ALLERGIES No known drug allergies. REVIEW OF SYSTEMS CONSTITUTIONAL: No appetite or weight change. No fever, chills or sweating. No recent infection. HEENT: Ears: No tinnitus or hearing problem. Nose: No nasal discharge or epistaxis. Throat: No sore throat or mouth ulcers. Eyes: No diplopia or visual changes. RESPIRATORY: No shortness of breath. No cough, expectoration or hemoptysis. CARDIOVASCULAR: No chest pain, orthopnea, or paroxysmal nocturnal dyspnea (PND) . No edema. No palpitations. GASTROINTESTINAL: He has one episode of diarrhea which resolved with his Imodium. GENITOURINARY: No hematuria or dysuria. MUSCULOSKELETAL: He has pain in the right hip down in his leg. NEUROLOGICAL: No tingling or numbness in the hands or feet. No headaches or convulsions. HEMATOLOGIC/LYMPHATIC: He bruises easily. He is weak, tired and fatigued. SKIN: No skin rash or lumps. PSYCHIATRIC: No anxiety or depression. PHYSICAL EXAMINATION GENERAL: Looks stable. Well-developed, well-nourished, and in no acute distress. VITAL SIGNS: Blood pressure 127/76, pulse 78 per minute, respirations 16 per minute, temperature 97.3, pulse oximetry 93% on room air. HEENT: Head: Atraumatic. No sinus tenderness to palpation. Eyes: No icterus or conjunctivitis. Mouth and throat: No oral thrush or mucositis. NECK: Supple. No cervical or supraclavicular lymphadenopathy. LUNGS: Clear to auscultation and percussion bilaterally. HEART: Regular rate and rhythm. No gallops, murmurs, clicks or rubs. ABDOMEN: Soft and lax. No tenderness. No hepatosplenomegaly. No masses. EXTREMITIES: No cyanosis, clubbing or edema. LYMPHATICS: No peripheral lymphadenopathy. NEUROLOGICAL: Conscious, alert and oriented times three. No focal motor or sensory deficits. PSYCHIATRIC: Mood and affect appear normal. SKIN: No skin rash, bruise or purpuric eruption. DIAGNOSTIC DATA CBC showed white count 8800, hemoglobin 13.4, hematocrit 39.1, platelets 105, 000. Chem panel totally normal except blood sugar 134, alkaline phosphatase 155. His chromogranin A was 634. ASSESSMENT 1. 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 Patient had a fine needle biopsy of the left neck mass February 12, 2017, which came back positive for poorly differentiated carcinoma. PET scan showed widespread metastatic disease. Given that the tumor was poorly differentiated, NCCN guidelines recommend treatment similar to small cell lung cancer, and because of his performance status, carboplatin and etoposide was chosen as a reasonable option for him. Patient started chemotherapy with carboplatin and etoposide April 08, 2017. He finished four cycles so far, and I am planning to proceed with his fifth cycle at this time, which will be due on July 01, 2017. After his chemotherapy, I am planning to check CBC and chem panel on a weekly basis. I am planning to treat him with Neulasta 6 mg after his chemotherapy. I will see him in three weeks from now with CBC, chem panel at that time and chromogranin A. After his sixth cycle of chemotherapy, I am planning to repeat his PET scan at that time. 2. Brain metastasis status post radiation therapy completed March 20, 2017. 3. Chemotherapy-induced thrombocytopenia. Current platelet count 105,000. No hematological intervention is required at the moment. Will continue to monitor. 4. Hepatic metastasis and lung metastasis. Hopefully patient will respond well to treatment with chemotherapy. 5. Bone metastasis. I will consider Xgeva treatment in the future. PLAN 1. Carboplatin and etoposide. This will be cycle number five, which will be due on July 01, 2017. 2. CBC, chem panel to be checked weekly. 3. Neulasta 6 mg subcutaneous after chemotherapy. 4. Patient to return in three weeks with CBC, chem panel and chromogranin A. 5. Patient to contact us for any new concerns or complaints. MTDD
[2017-07-01 12:28] VITALS: BP 131/81
[2017-07-01] MEDS: LIDOCAINE/SOD BICARB 8.4% SYR ID PRN (12:47)
[2017-07-01] MEDS: NS(*) 0.9% 500 ML BAG 500 ML IV PRN (12:47)
[2017-07-01] MEDS: DEXAMETHASONE SOD PHOS 10MG/ML IVP PRN (13:33)
[2017-07-01] MEDS: PALONOSETRON 0.25 MG/5 ML VIAL IVP PRN (13:34)
[2017-07-01] MEDS: FOSAPREPITANT DIM 150 MG/5 ML 150 MG in NS(*) 0.9% 250 ML BAG 245 ML IVPB PRN (13:58)
[2017-07-01 16:40] VITALS: BP 123/68
[2017-07-01] MEDS: HEPARIN FLSH (PORT) 500 UN/5ML IVP PRN (16:43)
[2017-07-02] MEDS: DEXAMETHASONE SOD PHOS 10MG/ML IVP PRN (11:57)
[2017-07-02 11:59] VITALS: BP 101/62
[2017-07-02] MEDS: NS(*) 0.9% 500 ML BAG 500 ML IV PRN (12:06)
[2017-07-02] MEDS: HEPARIN FLSH (PORT) 500 UN/5ML IVP PRN (13:30)
[2017-07-03] MEDS: DEXAMETHASONE SOD PHOS 10MG/ML IVP PRN (12:20)
[2017-07-03] MEDS: NS(*) 0.9% 500 ML BAG 500 ML IV PRN (12:20)
[2017-07-03] MEDS: HEPARIN FLSH (PORT) 500 UN/5ML IVP PRN (12:21)
[2017-07-03 12:26] VITALS: BP 138/81
[2017-07-03 14:41] VITALS: BP 133/69
[2017-07-08 09:07] VITALS: BP 136/72
[2017-07-08 09:27] LABS: PLATELET COUNT, AUTOMATED 164 K/uL (150-450)
[2017-07-15 09:41] VITALS: BP 127/87
[2017-07-15 09:50] LABS: PLATELET COUNT, AUTOMATED 123 K/uL (150-450)
[2017-07-18 12:59] VITALS: BP 139/74
--- NOTE | 2017-07-18 19:12 | ONCOLOGY FOLLOW UP NOTE ---
EVENT DATE: July 18, 2017 DIAGNOSES 1. Metastatic disease of unknown primary. 2. Brain metastasis. 3. Bone metastasis. 4. Hepatic metastasis. 5. Lung metastasis. CHIEF COMPLAINT Patient is here today for cycle number six of chemotherapy with carboplatin and etoposide for his metastatic disease, unknown primary. ONCOLOGY HISTORY The patient is a 72-year-old male who presented to the emergency department at [facility] on February 27, 2017 complaining of dizziness, nausea and vomiting. Noncontrast CT scan of the brain done at [facility] on February 27, 2017 showed no evidence of hemorrhage, mass or other acute process. He then had a limited MRI of the brain on February 27, 2017 showing 2.4 cm lesion within the left thalamus. MRI study could not be completed due to significant artifact from likely a metallic foreign body within the orbit soft tissues adjacent to the left globe. Contrast CT scan of the head was done showing 2 cm enhancing lesion of the left thalamus. The patient had PET/CT scan done in [place] on February 26, 2017 which showed widespread metastatic disease including several small pulmonary nodules in the right upper lobe, extensive hepatic metastasis, pelvic bone metastasis, and cervical and left inguinal paul metastasis. There was a mass in the right parotid gland likely metastatic intraparotid lymph node rather than a primary parotid tumor. The patient had multiple biopsies. 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 On February 12, 2017, he had a left neck mass fine needle aspiration which came back positive for poorly differentiated carcinoma. 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 Markers for the lung, breast, kidney, gynecologic tumors, bladder tumors and squamous cell carcinoma all came back negative. The patient completed radiation therapy to the brain on March 20, 2017. Patient started chemotherapy with carboplatin and etoposide on April 08, 2017. HISTORY OF PRESENT HISTORY Patient is here today for cycle number six of carboplatin and etoposide for his metastatic disease, unknown primary. The patient is doing fine currently and apart from having some pain in the right hip, patient does not have any other complaints. PAST MEDICAL HISTORY Significant for psoriasis. PAST SURGICAL HISTORY He had appendectomy. SOCIAL HISTORY The patient is with 4 children. 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 He is a smoker. He has about 60 pack years of tobacco abuse. He is currently smoking less than 1 pack a day. He occasionally has a glass of wine on Sundays. He denies any abuse of illicit drugs. FAMILY HISTORY He had brain cancer in 2 sisters. CURRENT MEDICATIONS 1. Sulfamethoxazole/trimethoprim 800/160 mg. 2. Bactrim 1 tablet orally daily. 3. Dexamethasone 3 mg daily. 4. Levetiracetam 500 mg twice daily. 5. Protonix 40 mg daily. 6. Folic acid 1 mg daily. 7. Garlic 1000 mg capsule daily. 8. Methotrexate 2.5 mg, 15 mg every week. 9. Fluocinonide 60 mg solution. 10. Clobetasol protonate 15 g ointment for psoriasis. 11. Triamcinolone Acetonide 0.5% topical daily. 12. Vitamin D3, 1000 units daily. 13. Zinc amino acid 50 mg daily. 14. Glucosamine 1 tablet daily. ALLERGIES No known drug allergies. REVIEW OF SYSTEMS CONSTITUTIONAL: No appetite or weight change. No fever, chills or sweating. No recent infection. HEENT: Ears: No tinnitus or hearing problem. Nose: No nasal discharge or epistaxis. Throat: No sore throat or mouth ulcers. Eyes: No diplopia or visual changes. RESPIRATORY: No shortness of breath. No cough, expectoration or hemoptysis. CARDIOVASCULAR: No chest pain, orthopnea, or paroxysmal nocturnal dyspnea (PND) . No edema. No palpitations. GASTROINTESTINAL: He has one episode of diarrhea which resolved with his Imodium. GENITOURINARY: No hematuria or dysuria. MUSCULOSKELETAL: Patient has pain in the right hip. NEUROLOGICAL: No tingling or numbness in the hands or feet. No headaches or convulsions. HEMATOLOGIC/LYMPHATIC: He bruises easily. He is weak, tired and fatigued. SKIN: No skin rash or lumps. PSYCHIATRIC: No anxiety or depression. PHYSICAL EXAMINATION GENERAL: Looks stable. Well-developed, well-nourished, and in no acute distress. VITAL SIGNS: Blood pressure 139/74, pulse 74 per minute, respirations 16 per minute, temperature 97.2, pulse oximetry 95% on room air. HEENT: Head: Atraumatic. No sinus tenderness to palpation. Eyes: No icterus or conjunctivitis. Mouth and throat: No oral thrush or mucositis. NECK: Supple. No cervical or supraclavicular lymphadenopathy. LUNGS: Clear to auscultation and percussion bilaterally. HEART: Regular rate and rhythm. No gallops, murmurs, clicks or rubs. ABDOMEN: Soft and lax. No tenderness. No hepatosplenomegaly. No masses. EXTREMITIES: No cyanosis, clubbing or edema. LYMPHATICS: No peripheral lymphadenopathy. NEUROLOGICAL: Conscious, alert and oriented times three. No focal motor or sensory deficits. PSYCHIATRIC: Mood and affect appear normal. SKIN: No skin rash, bruise or purpuric eruption. DIAGNOSTIC DATA CBC showed white count 7.3, hemoglobin 12.3, hematocrit 35.4, platelets 123, 000. Chem panel totally normal except potassium 3.3, carbon dioxide 21, alkaline phosphatase 166 and chromogranin A was 573. ASSESSMENT 1. 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 Patient had a fine needle biopsy of the left neck mass February 12, 2017, which came back positive for poorly differentiated carcinoma. PET/CT scan showed widespread metastatic disease. Given that the tumor was poorly differentiated, NCCN guidelines recommend treatment similar to small cell lung cancer, and because of his performance status, carboplatin and etoposide was chosen as a reasonable option for him. Patient started chemotherapy with carboplatin and etoposide April 08, 2017. He finished five cycles so far, and I am planning to proceed with his sixth cycle at this time on July 22, 2017. I am planning to check a CBC and chem panel on a weekly basis. I will see him in three weeks with CBC, chem panel, chromogranin A, and I will repeat his PET/ CT scan at that time. Patient also will receive Neulasta 6 mg after each cycle of chemotherapy. 2. Brain metastasis status post radiation therapy completed March 20, 2017. 3. Chemotherapy-induced thrombocytopenia. Current platelet count 123,000. Will continue to monitor. 4. Hepatic metastasis and lung metastasis. We will monitor the response to treatment by his next PET scan. 5. Bone metastasis. Will consider Xgeva treatment in the future. PLAN 1. Carboplatin and etoposide. This will be cycle number six to be given on July 22, 2017. 2. CBC, chem panel to be checked weekly. 3. Neulasta 6 mg subcutaneously after each cycle of chemotherapy. 4. Patient to return in three weeks with CBC, chem panel, chromogranin A and PET/CT scan. 5. Patient to contact us for any new concern or complaints. MTDD
[2017-07-22 12:31] VITALS: BP 131/85
[2017-07-22] MEDS: LIDOCAINE/SOD BICARB 8.4% SYR ID PRN (13:14)
[2017-07-22] MEDS: NS(*) 0.9% 500 ML BAG 500 ML IV PRN (13:14)
[2017-07-22] MEDS: PALONOSETRON 0.25 MG/5 ML VIAL IVP PRN (13:15)
[2017-07-22] MEDS: HEPARIN FLSH (PORT) 500 UN/5ML IVP PRN (13:15)
[2017-07-22] MEDS: DEXAMETHASONE SOD PHOS 10MG/ML IVP PRN (13:16)
[2017-07-22] MEDS: FOSAPREPITANT DIM 150 MG/5 ML 150 MG in NS(*) 0.9% 250 ML BAG 245 ML IVPB PRN (13:55)
[2017-07-23 12:36] VITALS: BP 106/83
[2017-07-23] MEDS: NS(*) 0.9% 500 ML BAG 500 ML IV PRN (12:43)
[2017-07-23] MEDS: DEXAMETHASONE SOD PHOS 10MG/ML IVP PRN (12:43)
[2017-07-23] MEDS: HEPARIN FLSH (PORT) 500 UN/5ML IVP PRN (15:19)
[2017-07-24] MEDS: NS(*) 0.9% 500 ML BAG 500 ML IV PRN (12:22)
[2017-07-24 12:26] VITALS: BP 129/73
[2017-07-24] MEDS: DEXAMETHASONE SOD PHOS 10MG/ML IVP PRN (12:35)
[2017-07-24] MEDS: HEPARIN FLSH (PORT) 500 UN/5ML IVP PRN (14:44)
[2017-07-29 09:54] VITALS: BP 116/64
[2017-07-29 10:10] LABS: PLATELET COUNT, AUTOMATED 192 K/uL (150-450)
[2017-08-05 09:58] VITALS: BP 133/74
[2017-08-05 10:05] LABS: PLATELET COUNT, AUTOMATED 115 K/uL (150-450)
[2017-08-08 13:00] VITALS: BP 121/74
--- NOTE | 2017-08-08 16:00 | ONCOLOGY FOLLOW UP NOTE ---
EVENT DATE: August 08, 2017 DIAGNOSES 1. Metastatic disease of unknown primary. 2. Brain metastasis. 3. Bone metastasis. 4. Hepatic metastasis. 5. Lung metastasis. CHIEF COMPLAINT Patient is here today for followup of his metastatic disease unknown primary. ONCOLOGY HISTORY The patient is a 72-year-old male who presented to the emergency department at [facility] on February 27, 2017 complaining of dizziness, nausea and vomiting. Noncontrast CT scan of the brain done at [facility] on February 27, 2017 showed no evidence of hemorrhage, mass or other acute process. He then had a limited MRI of the brain on February 27, 2017 showing 2.4 cm lesion within the left thalamus. MRI study could not be completed due to significant artifact from likely a metallic foreign body within the orbit soft tissues adjacent to the left globe. Contrast CT scan of the head was done showing 2 cm enhancing lesion of the left thalamus. The patient had PET/CT scan done in [place] on February 26, 2017 which showed widespread metastatic disease including several small pulmonary nodules in the right upper lobe, extensive hepatic metastasis, pelvic bone metastasis, and cervical and left inguinal paul metastasis. There was a mass in the right parotid gland likely metastatic intraparotid lymph node rather than a primary parotid tumor. The patient had multiple biopsies. 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 On February 12, 2017, he had a left neck mass fine needle aspiration which came back positive for poorly differentiated carcinoma. 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 Markers for the lung, breast, kidney, gynecologic tumors, bladder tumors and squamous cell carcinoma all came back negative. The patient completed radiation therapy to the brain on March 20, 2017. Patient started chemotherapy with carboplatin and etoposide on April 08, 2017. Patient received six cycles of carboplatin and etoposide, completed on July 18, 2017. HISTORY OF PRESENT HISTORY Patient is here today for followup of his disease unknown primary, and to discuss the results of his PET scan. He is complaining of occasional diarrhea. He has pain in his right knee and right hip and the right hip is getting worse. He is also weak, tired and fatigued. PAST MEDICAL HISTORY Significant for psoriasis. PAST SURGICAL HISTORY He had appendectomy. SOCIAL HISTORY The patient is with 4 children. 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 He is a smoker. He has about 60 pack years of tobacco abuse. He is currently smoking less than 1 pack a day. He occasionally has a glass of wine on Sundays. He denies any abuse of illicit drugs. FAMILY HISTORY He had brain cancer in 2 sisters. CURRENT MEDICATIONS 1. Sulfamethoxazole/trimethoprim 800/160 mg. 2. Bactrim 1 tablet orally daily. 3. Dexamethasone 3 mg daily. 4. Levetiracetam 500 mg twice daily. 5. Protonix 40 mg daily. 6. Folic acid 1 mg daily. 7. Garlic 1000 mg capsule daily. 8. Methotrexate 2.5 mg, 15 mg every week. 9. Fluocinonide 60 mg solution. 10. Clobetasol protonate 15 g ointment for psoriasis. 11. Triamcinolone Acetonide 0.5% topical daily. 12. Vitamin D3, 1000 units daily. 13. Zinc amino acid 50 mg daily. 14. Glucosamine 1 tablet daily. ALLERGIES No known drug allergies. REVIEW OF SYSTEMS CONSTITUTIONAL: No appetite or weight change. No fever, chills or sweating. No recent infection. HEENT: Ears: No tinnitus or hearing problem. Nose: No nasal discharge or epistaxis. Throat: No sore throat or mouth ulcers. Eyes: No diplopia or visual changes. RESPIRATORY: No shortness of breath. No cough, expectoration or hemoptysis. CARDIOVASCULAR: No chest pain, orthopnea, or paroxysmal nocturnal dyspnea (PND) . No edema. No palpitations. GASTROINTESTINAL: Patient has diarrhea. GENITOURINARY: No hematuria or dysuria. MUSCULOSKELETAL: He has pain in the right knee and right hip. NEUROLOGICAL: No tingling or numbness in the hands or feet. No headaches or convulsions. HEMATOLOGIC/LYMPHATIC: He bruises easily. He is weak, tired and fatigued. SKIN: No skin rash or lumps. PSYCHIATRIC: No anxiety or depression. PHYSICAL EXAMINATION GENERAL: Looks stable. Well-developed, well-nourished, and in no acute distress. VITAL SIGNS: Blood pressure 121/74, pulse 85 per minute, respirations 16 per minute, temperature 97.8, pulse oximetry 94% on room air. HEENT: Head: Atraumatic. No sinus tenderness to palpation. Eyes: No icterus or conjunctivitis. Mouth and throat: No oral thrush or mucositis. NECK: Supple. No cervical or supraclavicular lymphadenopathy. LUNGS: Clear to auscultation and percussion bilaterally. HEART: Regular rate and rhythm. No gallops, murmurs, clicks or rubs. ABDOMEN: Soft and lax. No tenderness. No hepatosplenomegaly. No masses. EXTREMITIES: No cyanosis, clubbing or edema. LYMPHATICS: No peripheral lymphadenopathy. NEUROLOGICAL: Conscious, alert and oriented times three. No focal motor or sensory deficits. PSYCHIATRIC: Mood and affect appear normal. SKIN: No skin rash, bruise or purpuric eruption. DIAGNOSTIC DATA CBC showed white count 8.7, hemoglobin 12.6, hematocrit 36.7, platelets 115, 000. Chem panel totally normal except carbon dioxide 20, alkaline phosphatase 213. PET CT scan done on August 04, 2017 showed progression of the liver metastatic disease and in the right iliac bone metastasis with reduced hypermetabolism in the two right upper lobe pulmonary nodules and the suprahyoid lymphadenopathy, but the bilateral cervical liver five lymph nodes are getting bigger and more hypermetabolic. Two sites of hypermetabolism without CT findings of an inflammatory process could represent sites of primary carcinoma or normal variant, and there was treated left frontal brain metastasis. ASSESSMENT 1. 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 Patient had a fine needle biopsy of the left neck mass February 12, 2017, which came back positive for poorly differentiated carcinoma. PET/CT scan showed widespread metastatic disease. Given that the tumor was poorly differentiated, NCCN guidelines are recommended treatment, similar to small cell lung cancer, and because of his performance status, carboplatin and etoposide was chosen as a reasonable option. He received carboplatin and etoposide for six cycles between April 08, 2017 through July 23, 2017. His PET scan showed a double response with improvement of the lung nodules and some of the suprahyoid lymph nodes, but with worsening level five cervical lymph nodes, right iliac bone and liver metastasis. PET scan showed also two areas of activity in the PET scan in the colon without associated inflammation in the colon. I am planning to send the patient to Dr. Vargas for colonoscopy. I am planning also to ask for some immunostains to see if the patient will be eligible for one of the immune therapies, and I will see him next week to consider further treatment. 2. Brain metastasis status post radiation therapy completed March 20, 2017, and his recent PET on August 04 did show evidence of response. 3. Neoplastic pain in the right hip from the right iliac bone metastasis. I am planning to refer the patient for radiation therapy. 4. Hepatic metastasis, is getting worse with his current treatment. I am planning to change his treatment. 5. Lung metastasis, getting better with treatment. 6. Bone metastasis. I will consider Xgeva in the future. With worsening pain in the right hip I am planning to send the patient for palliative radiation therapy. PLAN 1. Radiation Therapy consult for palliative radiation of the right iliac bone. 2. Immunostains to see if the patient will be eligible for immune therapy. 3. Referral to Dr. Vargas for colonoscopy. 4. Patient to return in one week with CBC, chem panel. 5. Patient to contact us for any new concerns or complaints. CLARAD
[2017-08-14 15:36] VITALS: BP 110/65
--- NOTE | 2017-08-14 20:14 | ONCOLOGY FOLLOW UP NOTE ---
EVENT DATE: August 14, 2017 DIAGNOSES 1. Metastatic disease of unknown primary. 2. Brain metastasis. 3. Bone metastasis. 4. Hepatic metastasis. 5. Lung metastasis. CHIEF COMPLAINT Patient is here today for followup of his metastatic disease of unknown primary. ONCOLOGY HISTORY The patient is a 72-year-old male who presented to the emergency department at [facility] on February 27, 2017 complaining of dizziness, nausea and vomiting. Noncontrast CT scan of the brain done at [facility] on February 27, 2017 showed no evidence of hemorrhage, mass or other acute process. He then had a limited MRI of the brain on February 27, 2017 showing 2.4 cm lesion within the left thalamus. MRI study could not be completed due to significant artifact from likely a metallic foreign body within the orbit soft tissues adjacent to the left globe. Contrast CT scan of the head was done showing 2 cm enhancing lesion of the left thalamus. The patient had PET/CT scan done in [place] on February 26, 2017 which showed widespread metastatic disease including several small pulmonary nodules in the right upper lobe, extensive hepatic metastasis, pelvic bone metastasis, and cervical and left inguinal paul metastasis. There was a mass in the right parotid gland likely metastatic intraparotid lymph node rather than a primary parotid tumor. The patient had multiple biopsies. 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 On February 12, 2017, he had a left neck mass fine needle aspiration which came back positive for poorly differentiated carcinoma. 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 Markers for the lung, breast, kidney, gynecologic tumors, bladder tumors and squamous cell carcinoma all came back negative. The patient completed radiation therapy to the brain on March 20, 2017. Patient started chemotherapy with carboplatin and etoposide on April 08, 2017. Patient received six cycles of carboplatin and etoposide, completed on July 18, 2017. HISTORY OF PRESENT HISTORY Patient is here today for followup of his metastatic disease of unknown primary. He is complaining of occasional diarrhea. He is complaining of right hip pain which is getting worse lately. He is also weak, tired and fatigued. PAST MEDICAL HISTORY Significant for psoriasis. PAST SURGICAL HISTORY He had appendectomy. SOCIAL HISTORY The patient is with 4 children. 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 He is a smoker. He has about 60 pack years of tobacco abuse. He is currently smoking less than 1 pack a day. He occasionally has a glass of wine on Sundays. He denies any abuse of illicit drugs. FAMILY HISTORY He had brain cancer in 2 sisters. CURRENT MEDICATIONS 1. Sulfamethoxazole/trimethoprim 800/160 mg. 2. Bactrim 1 tablet orally daily. 3. Dexamethasone 3 mg daily. 4. Levetiracetam 500 mg twice daily. 5. Protonix 40 mg daily. 6. Folic acid 1 mg daily. 7. Garlic 1000 mg capsule daily. 8. Methotrexate 2.5 mg, 15 mg every week. 9. Fluocinonide 60 mg solution. 10. Clobetasol protonate 15 g ointment for psoriasis. 11. Triamcinolone Acetonide 0.5% topical daily. 12. Vitamin D3, 1000 units daily. 13. Zinc amino acid 50 mg daily. 14. Glucosamine 1 tablet daily. ALLERGIES No known drug allergies. REVIEW OF SYSTEMS CONSTITUTIONAL: No appetite or weight change. No fever, chills or sweating. No recent infection. HEENT: Ears: No tinnitus or hearing problem. Nose: No nasal discharge or epistaxis. Throat: No sore throat or mouth ulcers. Eyes: No diplopia or visual changes. RESPIRATORY: No shortness of breath. No cough, expectoration or hemoptysis. CARDIOVASCULAR: No chest pain, orthopnea, or paroxysmal nocturnal dyspnea (PND) . No edema. No palpitations. GASTROINTESTINAL: He has occasional diarrhea. GENITOURINARY: No hematuria or dysuria. MUSCULOSKELETAL: He has pain in the right hip. NEUROLOGICAL: No tingling or numbness in the hands or feet. No headaches or convulsions. HEMATOLOGIC/LYMPHATIC: He bruises easily. He is weak, tired and fatigued. SKIN: No skin rash or lumps. PSYCHIATRIC: No anxiety or depression. PHYSICAL EXAMINATION GENERAL: Looks stable. Well-developed, well-nourished, and in no acute distress. VITAL SIGNS: Blood pressure 110/65, pulse 70 per minute, respirations 16 per minute, temperature 97.1, pulse oximetry 95% on room air. HEENT: Head: Atraumatic. No sinus tenderness to palpation. Eyes: No icterus or conjunctivitis. Mouth and Throat: No oral thrush or mucositis. NECK: Supple. No cervical or supraclavicular lymphadenopathy. LUNGS: Clear to auscultation and percussion bilaterally. HEART: Regular rate and rhythm. No gallops, murmurs, clicks or rubs. ABDOMEN: Soft and lax. No tenderness. No hepatosplenomegaly. No masses. EXTREMITIES: No cyanosis, clubbing or edema. LYMPHATICS: No peripheral lymphadenopathy. NEUROLOGICAL: Conscious, alert and oriented times three. No focal motor or sensory deficits. PSYCHIATRIC: Mood and affect appear normal. SKIN: No skin rash, bruise or purpuric eruption. ASSESSMENT 1. 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 Patient had a fine needle aspiration biopsy of the left neck mass February 12, 2017, which came back positive for poorly differentiated carcinoma. PET/CT scan showed widespread disease. Given that the tumor was poorly differentiated, NCCN guidelines recommended treatment similar to small cell lung cancer. Because of his performance status, patient has received carboplatin and etoposide for six cycles, received between April 08, 2017 through July 23, 2017. His PET scan after chemotherapy showed a double response with improvement of the lung nodules and some of the suprahyoid lymph nodes, but with worsening level five cervical lymph nodes, right iliac bone and liver metastasis. PET scan also showed two areas of activity in the PET scan in the colon without associated inflammation of the colon. The patient is scheduled to see Dr. Vargas and is scheduled for colonoscopy on August 27, 2017. Immunostain from his tumor before was negative for any targeted therapy. I am planning to see him after the colonoscopy to decide about further chemotherapy. I explained that to the patient and his family. They are agreeable with the plan of management. 2. Brain metastasis status post radiation therapy completed March 20, 2017 with improvement by repeat PET scan. 3. Right hip pain due to neoplastic involvement of the right iliac bone metastasis. Patient starts radiation therapy on August 14, 2017 for pain control. 4. Hepatic metastasis, getting worse with treatment with carboplatin and etoposide. I am planning to change the treatment next visit. 5. Lung metastasis got better with the treatment with carboplatin and etoposide. 6. Bone metastasis. Will consider Xgeva in the future. For the worsening right hip pain the patient will receive radiation therapy which started August 14, 2017. PLAN 1. Patient to return on August 28, 2017 to decide about further management. 2. Await the end of radiation therapy. 3. Await the colonoscopy result. If there is a mass in the colon, turns out to be colon cancer, then we will treat the patient as colonic adenocarcinoma with metastasis. 4. Patient to contact us for any new concerns or complaints. BALWINDER
[~2017-08-19] VITALS: Ht 163.3 cm; Wt 76.3 kg
[~2017-08-19 10:00] MED LIST changes: +ALTEPLASE RECOMB 2 MG VIAL IVP PRN; +CARBOPLATIN IVPB ONE; +DEXTROSE 5%(*) 100 ML BAG 100 ML IVPB PRN; +ETOPOSIDE IV ONE; +NS 0.9% IV ONE; +NS 0.9% IVPB ONE; +NS(*) 0.9% 100 ML BAG 100 ML IVPB PRN; +PEGFILGRASTIM 6 MG/0.6 ML KIT SUBQ ONE; +WATER FOR INJ,STERILE 20 ML IVP PRN
[2017-08-19] MEDS ORDERED: OXYC-823 PO (16:42)
[2017-08-20] MEDS ORDERED: NAPR-1043 PO (11:43)
== END 2017-08-21 09:23 | disposition home or self-care (01) ==
LOC: SPU 10:00
PROVIDERS: ATTEND Internal Medicine Hematology
DX: Z51.11 Encounter for antineoplastic chemotherapy (principal); C80.1 Malignant (primary) neoplasm, unspecified; C79.31 Secondary malignant neoplasm of brain; C79.51 Secondary malignant neoplasm of bone; C78.7 Secondary malignant neoplasm of liver and intrahepatic bile duct; C78.00 Secondary malignant neoplasm of unspecified lung; Z92.3 Personal history of irradiation; F17.210 Nicotine dependence, cigarettes, uncomplicated; Z79.899 Other long term (current) drug therapy; D69.59 Other secondary thrombocytopenia; T45.1X5A Adverse effect of antineoplastic and immunosuppressive drugs, initial encounter
CPT/HCPCS: 36415; 82378; 85025; 85027; 96367; 96372; 96375; 96413; 96415; 96417; G0463; J1100; J1453; J1642; J2469; J2505; J7040; J7050; J9045; J9181; 82040; 82247; 82310; 82374; 82435; 82565; 82947; 84075; 84132; 84155; 84295; 84450; 84460; 84520; 86316; 96361; 99212